=== PATIENT | female | born 1955 | race Caucasian/White ===

== ENCOUNTER 2019-09-23 09:14 | Outpatient (CLI) | payer BC, SELFPAY ==
[2019-09-23 09:48] LABS: Basophils Percent Auto 0.9 % (0.2-1.2); Eosinophils Absolute Auto 0.2 K/mm3 (0-0.3); Eosinophils Percent Auto 3.4 % (0-4.4); Hematocrit 38.2 % (37.0-47.0); Hemoglobin 12.5 g/dL (12.0-15.0); Immature Granulocyte Absolute 0.01 K/mm3 (0.00-0.031); Immature Granulocyte Percent A 0.2 % (0-0.5); Lymphocytes Percent Auto 32.3 % (18.3-44.2); Mean Corpuscular HGB Conc 32.7 g/dl (32-36); Mean Corpuscular Hemoglobin 29.9 pg (26-34); Mean Corpuscular Volume 91.4 fl (80-100); Mean Platelet Volume 10.4 fl (7.4-10.4); Monocytes Absolute Auto 0.6 K/mm3 (0.1-0.6); Monocytes Percent Auto 13.4 % (2.6-8.5); Neutrophils Absolute Auto 2.3 K/mm3 (1.3-6.7); Neutrophils Percent Auto 49.8 % (45.5-73.1); Platelet Count Result 245 k/mm3 (150-375); Red Blood Count 4.18 M/mm3 (4.2-5.4); White Blood Count 4.6 K/mm3 (4.5-10.0)
[2019-09-23 12:26] LABS: Alanine Aminotransferase 16 U/L (4-35); Albumin Level 4.4 g/dL (3.5-5.1); Alkaline Phosphatase 85 U/L (38-126); Aspartate Amino Transferase 22 U/L (14-36); Bilirubin,Total 0.4 mg/dL (0.2-1.3); Blood Urea Nitrogen 18 mg/dL (7-17); Calcium 10.3 mg/dL (8.4-10.2); Carbon Dioxide 31 mmol/L (22-30); Chloride 102 mmol/L (98-107); Estimated Glomerular Filt Rate > 60; Glucose 101 mg/dL (65-105); Sodium 139 mmol/L (137-145)
[2019-09-23 12:38] LABS: Parathyroid Intact 37.5 pg/mL (7.5-53.5)
[2019-09-26 04:46] LABS: CA 27.29 17 U/mL (<38)
== END 2019-09-23 09:15 | disposition home or self-care (01) ==
LOC: ANHLAB 09:17
PROVIDERS: PCP Internal Medicine; Visit Provider Internal Medicine Hematology & Oncology
DX: E83.52 Hypercalcemia (principal); C50.112 Malignant neoplasm of central portion of left female breast; Z17.0 Estrogen receptor positive status [ER+]
CPT/HCPCS: 36415; 80053; 82306; 83970; 85025; 86300

== ENCOUNTER 2019-09-30 12:28 | Outpatient (CLI) | payer BC, SELFPAY ==
[2019-09-30 16:26] LABS: Immunoglobulin A 657 mg/dL (70-400); Immunoglobulin G 1301 mg/dL (700-1600); Immunoglobulin M 83 mg/dL (40-230)
[2019-10-04 03:44] LABS: Kappa\\Lambda Light Chains 1.45 (0.26-1.65); Lambda Light Chain 17.4 mg/L (5.7-26.3)
[2019-10-05 04:53] LABS: Albumin 4.3 g/dL (3.8-4.8); Alpha 1 Globulin 0.3 g/dL (0.2-0.3); Alpha 2 Globulin 0.7 g/dL (0.5-0.9); Beta 1 Globulin 0.5 g/dL (0.4-0.6); Gamma Globulin 1.2 g/dL (0.8-1.7); Protein, Total 7.5 g/dL (6.1-8.1)
== END 2019-09-30 12:29 | disposition home or self-care (01) ==
LOC: ANHLAB 12:30
PROVIDERS: PCP Internal Medicine; Visit Provider Internal Medicine Hematology & Oncology
DX: E83.52 Hypercalcemia (principal)
CPT/HCPCS: 36415; 82784; 83883; 84155; 84165; 86334

== ENCOUNTER → 2019-12-22 09:18 | Outpatient (CLI) | payer BC, SELFPAY ==
--- NOTE | ~2019-12-22 | MM_ITS ---
EXAMINATION: MM diagnostic jim BI w olivia HISTORY: History of breast cancer. Recent breast reduction surgery. TECHNIQUE: Additional 3-D tomosynthesis images of the breasts were performed and synthetic 2-D images were generated. CAD analysis was submitted and interpreted. COMPARISON: Comparison to multiple prior studies sequentially, with oldest reviewed study dated 11/2016. BREAST PARENCHYMAL COMPOSITION: Breast composed of scattered areas of fibroglandular density. FINDINGS: There are surgical changes of bilateral breast reduction surgery. There are no suspicious m asses, calcifications or architectural distortion in either breast to suggest malignancy. IMPRESSION: 1. No mammographic evidence for malignancy in either breast. 2. Routine yearly screening mammogram and regular clinical breast examination are recommended. BI-RADS Category 2: Benign finding(s). Reviewed, dictated and finalized at location A. IMPRESSION: 1. No mammographic evidence for malignancy in either breast. 2. Routine yearly screening mammogram and regular clinical breast examination a re recommended. BI-RADS Category 2: Benign finding(s).
== END ==
PROVIDERS: PCP Internal Medicine; Visit Provider Internal Medicine Hematology & Oncology
DX: C50.112 Malignant neoplasm of central portion of left female breast (principal); Z17.0 Estrogen receptor positive status [ER+]
CPT/HCPCS: 77062; 77066; G0279

== ENCOUNTER 2019-12-30 08:42 | Outpatient (CLI) | payer BC, SELFPAY ==
[2019-12-30 09:00] LABS: Basophils Absolute Auto 0.1 K/mm3 (0.0-0.1); Basophils Percent Auto 1.1 % (0.2-1.2); Eosinophils Absolute Auto 0.2 K/mm3 (0-0.3); Eosinophils Percent Auto 2.8 % (0-4.4); Hematocrit 37.1 % (37.0-47.0); Hemoglobin 12.1 g/dL (12.0-15.0); Immature Granulocyte Absolute 0.02 K/mm3 (0.00-0.031); Immature Granulocyte Percent A 0.4 % (0-0.5); Lymphocytes Percent Auto 31.3 % (18.3-44.2); Mean Corpuscular HGB Conc 32.6 g/dl (32-36); Mean Corpuscular Hemoglobin 29.3 pg (26-34); Mean Corpuscular Volume 89.8 fl (80-100); Mean Platelet Volume 9.7 fl (7.4-10.4); Monocytes Absolute Auto 0.8 K/mm3 (0.1-0.6); Monocytes Percent Auto 15.5 % (2.6-8.5); Neutrophils Absolute Auto 2.7 K/mm3 (1.3-6.7); Neutrophils Percent Auto 48.9 % (45.5-73.1); Platelet Count Result 231 k/mm3 (150-375); Red Blood Count 4.13 M/mm3 (4.2-5.4); Red Cell Distribution Width 12.1 % (11.5-14.5); White Blood Count 5.4 K/mm3 (4.5-10.0)
[2019-12-30 10:22] LABS: Alanine Aminotransferase 19 U/L (4-35); Albumin Level 4.5 g/dL (3.5-5.1); Alkaline Phosphatase 86 U/L (38-126); Anion Gap 13.2 mmol/L (7-16); Aspartate Amino Transferase 21 U/L (14-36); Bilirubin,Total 0.4 mg/dL (0.2-1.3); Blood Urea Nitrogen 20 mg/dL (7-17); Calcium 9.9 mg/dL (8.4-10.2); Carbon Dioxide 29 mmol/L (22-30); Chloride 100 mmol/L (98-107); Estimated Glomerular Filt Rate > 60; Glucose 100 mg/dL (65-105); Potassium 4.2 mmol/L (3.4-5.0); Sodium 138 mmol/L (137-145)
[2020-01-06 05:33] LABS: CA 27.29 21 U/mL (<38)
== END 2019-12-30 08:43 | disposition home or self-care (01) ==
PROVIDERS: PCP Internal Medicine; Visit Provider Internal Medicine Hematology & Oncology
DX: C50.112 Malignant neoplasm of central portion of left female breast (principal); Z17.0 Estrogen receptor positive status [ER+]
CPT/HCPCS: 36415; 80053; 85025; 86300

== ENCOUNTER → 2020-01-22 10:21 | Outpatient (CLI) | payer BC, SELFPAY ==
--- NOTE | ~2020-01-22 | DEXA_ITS ---
Bone Density Report Name: Asmita Cleary Age: 64 Sex: Female Ethnicity: White Date of : 1955 Indication: postmenopausal; screening for osteoporosis; cancer; Referring Provider: Carmine Barrientos Study: Bone densitometry was performed. Exam Date: January 22, 2020 Accession number: [id number] Bone Density: Region BMD T-score Z-score Classification AP Spine (L1-L4) 0.964 -0.8 0.9 Normal Femoral Neck (Left) 0.770 -0.7 0.7 Normal Total Hip (Left) 0.850 -0.8 0.4 Normal Femoral Neck (Right) 0.793 -0.5 0.9 Normal Total Hip (Right) 0.796 -1.2 -0.1 Osteopenia Total Hip Mean 0.823 -1.0 0.2 Normal World Health Organization criteria for BMD impression classify patients as: Normal (T-score at or above -1.0), Osteopenia (T-score between -1.0 and -2.5), or Osteoporosis (T-score at or below -2.5). Previous Exams: Region Exam Age BMD T-score BMD Change BMD Change Date g/cm2 vs Baseline vs Previous AP Spine(L1-L4) 01/22/2020 64 0.964 -0.8 -0.100* -0.045* 01/08/2014 58 1.009 -0.3 -0.055* -0.044* 04/24/2010 55 1.053 0.1 -0.012 -0.012 02/04/2008 52 1.064 0.2 Total Hip(Left) 01/22/2020 64 0.850 -0.8 -0.150* -0.047* 01/08/2014 58 0.897 -0.4 -0.102* -0.021 04/24/2010 55 0.918 -0.2 -0.081* -0.081* 02/04/2008 52 1.000 0.5 Total Hip(Right) 01/22/2020 64 0.796 -1.2 -0.130* -0.049* 01/08/2014 58 0.844 -0.8 -0.082* -0.034* 04/24/2010 55 0.879 -0.5 -0.047* -0.047* 02/04/2008 52 0.926 -0.1 *Denotes significance at 95% confidence level, LSC for AP Spine = 0.022 g/cm2, LSC for Total Hip = 0.027 g/cm2 Clinical Information Provided by Patient: Has used the following medications: Vitamin D, Moeex Has the following medical conditions: Cancer Patient maximum height was 65 Menopause Age: 52 Drinks caffeinated beverages Onset of menses at age 15 Number of children 2 Impression: The patient has low bone mass, based on the Right Total Hip T-score. The BMD for the AP Spine(L1-L4) decreased, changing by -0.045 since the last DXA exam. The BMD for the Total Hip(Left) decreased, changing by -0.047 since the last DXA exam. The BMD for the Total Hip(Right) decreased, changing by -0.049 since the last DXA exam. Discussion: BONE DENSITY IS LOW AT ONE OR MORE SKELETAL SITES. This patient's lowest T-score is low at one or more skeletal sites. It meets the World Health Organization's (WHO) criteria for ?low bone mass? (T-score
== END ==
PROVIDERS: Visit Provider Nurse Practitioner Adult Health
DX: Z78.0 Asymptomatic menopausal state (principal); M85.851 Other specified disorders of bone density and structure, right thigh
CPT/HCPCS: 77080

== ENCOUNTER 2020-03-30 08:35 | Outpatient (CLI) | payer BC, SELFPAY ==
[2020-03-30 08:49] LABS: Basophils Absolute Auto 0.1 K/mm3 (0.0-0.1); Basophils Percent Auto 0.9 % (0.2-1.2); Eosinophils Absolute Auto 0.2 K/mm3 (0-0.3); Eosinophils Percent Auto 3.2 % (0-4.4); Hematocrit 39.1 % (37.0-47.0); Hemoglobin 12.7 g/dL (12.0-15.0); Immature Granulocyte Absolute 0.01 K/mm3 (0.00-0.031); Immature Granulocyte Percent A 0.2 % (0-0.5); Lymphocytes Absolute Auto 1.78 K/mm3 (0.9-3.2); Lymphocytes Percent Auto 31.3 % (18.3-44.2); Mean Corpuscular HGB Conc 32.5 g/dl (32-36); Mean Corpuscular Hemoglobin 29.4 pg (26-34); Mean Corpuscular Volume 90.5 fl (80-100); Mean Platelet Volume 9.5 fl (7.4-10.4); Monocytes Absolute Auto 0.7 K/mm3 (0.1-0.6); Monocytes Percent Auto 12.9 % (2.6-8.5); Neutrophils Absolute Auto 2.9 K/mm3 (1.3-6.7); Neutrophils Percent Auto 51.5 % (45.5-73.1); Platelet Count Result 275 k/mm3 (150-375); Red Blood Count 4.32 M/mm3 (4.2-5.4); Red Cell Distribution Width 11.6 % (11.5-14.5); White Blood Count 5.7 K/mm3 (4.5-10.0)
[2020-03-30 13:12] LABS: Alanine Aminotransferase 22 U/L (4-35); Albumin Level 4.6 g/dL (3.5-5.1); Alkaline Phosphatase 89 U/L (38-126); Anion Gap 11 mmol/L (8-16); Aspartate Amino Transferase 25 U/L (14-36); Bilirubin,Total 0.3 mg/dL (0.2-1.3); Blood Urea Nitrogen 18 mg/dL (7-17); Calcium 10.1 mg/dL (8.4-10.2); Carbon Dioxide 30 mmol/L (22-30); Chloride 102 mmol/L (98-107); Estimated Glomerular Filt Rate > 60; Glucose 106 mg/dL (65-105); Potassium 3.9 mmol/L (3.4-5.0); Sodium 143 mmol/L (137-145)
[2020-04-02 13:06] LABS: CA 27.29 17 U/mL (<38)
== END 2020-03-30 08:36 | disposition home or self-care (01) ==
LOC: ANHLAB 08:37
PROVIDERS: PCP Internal Medicine; Visit Provider Internal Medicine Hematology & Oncology
DX: C50.112 Malignant neoplasm of central portion of left female breast (principal); Z17.0 Estrogen receptor positive status [ER+]
CPT/HCPCS: 36415; 80053; 85025; 86300

== ENCOUNTER 2020-04-19 11:04 | Outpatient (CLI) | payer BC, SELFPAY ==
--- NOTE | ~2020-04-19 | XR_ITS ---
EXAMINATION: XR wrist LT min 3V DATE: 04/19/2020 11:31 INDICATION: Left wrist pain. TECHNIQUE: 4 views of left wrist were obtained. COMPARISON: None. FINDINGS: Bone alignment is normal. No fracture. There is mild osteoarthritis of triscaphe joint and first carpometacarpal joint. IMPRESSION: 1. Mild polyarticular osteoarthritis. Reviewed, dictated and finalized at location A. 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
== END 2020-04-19 11:05 | disposition home or self-care (01) ==
LOC: ANHIMG 11:12
PROVIDERS: PCP Internal Medicine; Visit Provider Nurse Practitioner Adult Health
DX: M19.032 Primary osteoarthritis, left wrist (principal)
CPT/HCPCS: 73110

== ENCOUNTER → 2020-06-07 09:33 | Outpatient (CLI) | payer BC, SELFPAY ==
--- NOTE | ~2020-06-07 | MM_ITS ---
EXAMINATION: MM diagnostic jim LT w olivia HISTORY: History of left breast cancer TECHNIQUE: Craniocaudal, mediolateral, and mediolateral oblique 3-D tomosynthesis images of the left breast were performed and synthetic 2-D images were generated. CAD analysis was submitted and interpr eted. COMPARISON: 12/22/2019, 06/08/2019, 08/15/2018, 08/12/2018, 08/08/2017 BREAST PARENCHYMAL COMPOSITION: There are scattered areas of fibroglandular density. FINDINGS: Lumpectomy changes of the inner breast continue to evolve. There is no suspicious mass, gisela cification, or architectural distortion. There is been no suspicious interval change. IMPRESSION: 1. Evolving lumpectomy changes without mammographic evidence of malignancy. 2. Routine screening mammography is recommended. BI-RADS Category 2: Benign finding(s). Reviewed, dictated and finalized at location A. [employer]
== END ==
PROVIDERS: PCP Internal Medicine; Visit Provider Nurse Practitioner Adult Health
DX: C50.112 Malignant neoplasm of central portion of left female breast (principal); Z17.0 Estrogen receptor positive status [ER+]; Z98.890 Other specified postprocedural states
CPT/HCPCS: 77061; 77065; G0279

== ENCOUNTER 2020-09-08 09:01 | Outpatient (CLI) | payer BC, SELFPAY ==
[2020-09-08 09:32] LABS: Basophils Percent Auto 0.6 % (0.2-1.2); Eosinophils Absolute Auto 0.1 K/mm3 (0-0.3); Eosinophils Percent Auto 2.6 % (0-4.4); Hematocrit 39.6 % (37.0-47.0); Hemoglobin 12.9 g/dL (12.0-15.0); Immature Granulocyte Absolute 0.02 K/mm3 (0.00-0.031); Immature Granulocyte Percent A 0.4 % (0-0.5); Lymphocytes Absolute Auto 1.69 K/mm3 (0.9-3.2); Lymphocytes Percent Auto 31.2 % (18.3-44.2); Mean Corpuscular HGB Conc 32.6 g/dl (32-36); Mean Corpuscular Hemoglobin 28.9 pg (26-34); Mean Corpuscular Volume 88.8 fl (80-100); Mean Platelet Volume 9.8 fl (7.4-10.4); Monocytes Absolute Auto 0.7 K/mm3 (0.1-0.6); Monocytes Percent Auto 12.9 % (2.6-8.5); Neutrophils Absolute Auto 2.8 K/mm3 (1.3-6.7); Neutrophils Percent Auto 52.3 % (45.5-73.1); Platelet Count Result 257 k/mm3 (150-375); Red Blood Count 4.46 M/mm3 (4.2-5.4); Red Cell Distribution Width 12.2 % (11.5-14.5); White Blood Count 5.4 K/mm3 (4.5-10.0)
[2020-09-08 11:57] LABS: Alanine Aminotransferase 22 U/L (4-35); Albumin Level 4.6 g/dL (3.5-5.1); Alkaline Phosphatase 91 U/L (38-126); Anion Gap 9 mmol/L (8-16); Aspartate Amino Transferase 25 U/L (14-36); Bilirubin,Total 0.3 mg/dL (0.2-1.3); Blood Urea Nitrogen 15 mg/dL (7-17); Calcium 9.9 mg/dL (8.4-10.2); Carbon Dioxide 28 mmol/L (22-30); Chloride 105 mmol/L (98-107); Estimated Glomerular Filt Rate > 60; Glucose 104 mg/dL (65-105); Potassium 3.9 mmol/L (3.4-5.0); Sodium 142 mmol/L (137-145)
[2020-09-11 09:21] LABS: CA 15-3 10 U/mL (<32)
== END 2020-09-08 09:02 | disposition home or self-care (01) ==
LOC: ANHLAB 09:03
PROVIDERS: PCP Internal Medicine; Visit Provider Internal Medicine Hematology & Oncology
DX: C50.112 Malignant neoplasm of central portion of left female breast (principal); Z17.0 Estrogen receptor positive status [ER+]
CPT/HCPCS: 36415; 80053; 85025; 86300

== ENCOUNTER → 2020-09-24 01:02 | Outpatient (CLI) | payer BC, SELFPAY ==
[2020-09-24 20:53] LABS: SARS-CoV-2 RNA PCR Negative
== END ==
PROVIDERS: PCP Internal Medicine; Visit Provider Internal Medicine Gastroenterology
DX: Z01.812 Encounter for preprocedural laboratory examination (principal); Z20.822 Contact with and (suspected) exposure to COVID-19
CPT/HCPCS: C9803; U0003; U0005

== ENCOUNTER 2020-09-27 02:44 | Day surgery (SDC) | payer BC, SELFPAY ==
[2020-09-15 12:50] VITALS: BMI 31.1
[2020-09-27 07:33] VITALS: BP 132/56; PULSE 61; RESP 18; TEMP 36.4; O2SAT 99; BMI 29.7
[2020-09-27] MEDS: LACTATED RINGERS 1,000 ML 150 ML IV CONT (07:41)
--- NOTE | 2020-09-27 08:25 | WPDANESEPPF ---
Anes - Initial Pre Proc Eval Procedure: Operation Date: 09/27/20 08:45 Proposed Procedures p Screening Colonoscopy - Raman Arroyo MD Date/Time: 09/27/20 08:25 Surgeon: Raman Arroyo MD Pre Op Diagnosis: Neoplasm Screening Patient Data Age: 65 Gender: F Height: 5 ft 5 in Weight: 81.1 kg Last Vital Signs Temp 97.6 F 09/27/20 07:33 Pulse 61 09/27/20 07:33 Resp 18 09/27/20 07:33 BP 132/56 L 09/27/20 07:33 Pulse Ox 99 09/27/20 07:33 Allergies Allergy/AdvReac Type Severity Reaction Status Date / Time latex Allergy Intermediate REDNESS, Verified 09/09/20 09:59 ITCHING, ANGIOEDEMA Penicillins Allergy Intermediate RASH Verified 09/09/20 09:59 povidone-iodine Allergy Mild Rash Verified 09/09/20 09:59 soap [From Betadine] Allergy Rash Verified 09/15/20 12:46 Home Medications Medication Instructions Recorded Confirmed Type amlodipine 5 mg PO DAILY 03/11/20 09/15/20 History anastrozole 1 mg PO DAILY 03/11/20 09/15/20 History atenolol 100 mg PO DAILY 03/11/20 09/15/20 History calcium polycarbophil [FiberCon] 1,250 mg PO DAILY 03/11/20 09/15/20 History cholecalciferol (vitamin D3) 25 mcg PO DAILY 03/11/20 09/15/20 History [Vitamin D3] levothyroxine [Synthroid] 88 mcg PO DAILY 03/11/20 09/15/20 History cjegqptowbcr-uwum-rlrmt acid 1 tablet PO DAILY 03/11/20 09/15/20 History [Centrum Women] potassium chloride 20 meq PO BID 03/11/20 09/15/20 History triamcinolone acetonide 1 applic TOPICAL BID 03/11/20 09/15/20 History triamterene-hydrochlorothiazid 0.5 tablet PO DAILY 03/11/20 09/15/20 History calcium carbonate-vitamin D3 1 tablet PO DAILY 09/15/20 09/15/20 History [Calcium + D] Patient hx anesthesia problems: none Family hx anesthesia problems: none PMFSH Past Medical History Medical History (Updated 09/27/20 @ 08:25 by Ronald Gutierrez MD) H/O malignant neoplasm of breast Hypertension Hypothyroid Social History Social History Substance use type: does not use Gender identity (if verbalized by the patient): Female Anes - Eval Final PreProcedure Day of Procedure 09/27/20 08:25 Patient weight: overweight Heart: regular rate and rhythm Lungs: clear to auscultation Airway: Mallampati scale class II Neurological: alert and oriented Last oral intake: >/= 8 hours ASA classification: III Emergent: no Anesthetic plan: proceed Anesthesia type and monitoring: general GIVS and standard monitoring Informed Consent: The patient's anesthetic plan and its attendant risks and benefits were discussed with the patient/family/POA. Questions were solicited and answers provided to the satisfaction of the patient/family/POA.
--- NOTE | 2020-09-27 08:50 | PM.HPGS ---
History of Present Illness History of Present Illness Consent: Risks, benefits, and alternatives have been discussed and questions answered. Patient agrees to proceed with procedure. Chief complaint: Neoplasm Screening Narrative: Asmita Cleary is a 65 year old female with last colonoscopy 2011 Review of Systems Constitutional: Constitutional: Denies headache(s) and Denies weakness Eyes: Eyes: Denies blurry vision ENT: Reports Normal hearing present, Denies headache(s) and Denies neck pain Cardiovascular: Cardiovascular: Denies chest pain and Denies dyspnea Respiratory: Respiratory: Denies dyspnea Gastrointestinal: Gastrointestinal: Reports no additional gastrointestinal complaints Genitourinary: Genitourinary: Denies dysuria Musculoskeletal: Musculoskeletal: Denies neck pain Integumentary/Breasts: Skin/Breast: Denies dry skin Neurologic: Reports Normal hearing present, Denies headache(s) and Denies weakness Psychiatric: Psychiatric: Denies anxiety Endocrine: Endocrine: Denies change in body appearance Hematologic/Lymphatic: Hematologic/Lymphatic: Denies easy bleeding Allergic/Immunologic: Allergic/Immunologic: Denies urticaria PMF Past Medical History Medical History (Updated 09/27/20 @ 08:52 by Raman Arroyo MD) Colon cancer screening H/O malignant neoplasm of breast Hypertension Hypothyroid Social History Social History Substance use type: does not use Gender identity (if verbalized by the patient): Female Meds Home Medications and Allergies Home Medications Medication Instructions Recorded Confirmed Type amlodipine 5 mg PO DAILY 03/11/20 09/15/20 History anastrozole 1 mg PO DAILY 03/11/20 09/15/20 History atenolol 100 mg PO DAILY 03/11/20 09/15/20 History calcium polycarbophil [FiberCon] 1,250 mg PO DAILY 03/11/20 09/15/20 History cholecalciferol (vitamin D3) 25 mcg PO DAILY 03/11/20 09/15/20 History [Vitamin D3] levothyroxine [Synthroid] 88 mcg PO DAILY 03/11/20 09/15/20 History xepxrgzrngop-xzkk-uslgu acid 1 tablet PO DAILY 03/11/20 09/15/20 History [Centrum Women] potassium chloride 20 meq PO BID 03/11/20 09/15/20 History triamcinolone acetonide 1 applic TOPICAL BID 03/11/20 09/15/20 History triamterene-hydrochlorothiazid 0.5 tablet PO DAILY 03/11/20 09/15/20 History calcium carbonate-vitamin D3 1 tablet PO DAILY 09/15/20 09/15/20 History [Calcium + D] Allergies Allergy/AdvReac Type Severity Reaction Status Date / Time latex Allergy Intermediate REDNESS, Verified 09/09/20 09:59 ITCHING, ANGIOEDEMA Penicillins Allergy Intermediate RASH Verified 09/09/20 09:59 povidone-iodine Allergy Mild Rash Verified 09/09/20 09:59 soap [From Betadine] Allergy Rash Verified 09/15/20 12:46 Vital Signs Vital Signs - 24 hr 09/27/20 07:33 Temperature 97.6 F Pulse Rate 61 Respiratory Rate 18 Blood Pressure 132/56 L Pulse Oximetry 99 Exam Const: General: comfortable and no acute distress HENMT: General nose exam: Normal nares present Eyes: General: appearance normal, both eyes and all related structures Neck: Neck: no JVD Resp: Auscultation: clear to auscultation bilaterally Cardio: Rate: regular rate Rhythm: regular rhythm GI: Inspection: non-distended GI Palp: Yes Soft to palpation Skin: General skin exam: normal color Neuro: General: gait normal Speech: normal speech Extrem: General: normal to inspection Psych: Mental Status: mental status grossly normal Assessment and Plan Assessment and plan (1) Colon cancer screening: Code(s): Z12.11 - Encounter for screening for malignant neoplasm of colon Status: Acute Assessment and Plan: colonoscopy
[2020-09-27 09:15] VITALS: BP 85/28; PULSE 61; RESP 15; O2SAT 97
[2020-09-27 09:25] VITALS: BP 105/61; PULSE 60; RESP 15; O2SAT 99
[2020-09-27 09:35] VITALS: BP 99/60; PULSE 57; RESP 22; O2SAT 100
== END 2020-09-27 09:35 | disposition home or self-care (01) ==
PROVIDERS: PCP Internal Medicine; Visit Provider Internal Medicine Gastroenterology
PROC: 0DJD8ZZ Inspection of Lower Intestinal Tract, Via Natural or Artificial Opening Endoscopic (ICD-10-PCS; CPT 45378; principal; 2020-09-27 08:45)
DX: Z12.11 Encounter for screening for malignant neoplasm of colon (principal); D36.9 Benign neoplasm, unspecified site; K57.30 Diverticulosis of large intestine without perforation or abscess without bleeding; K64.8 Other hemorrhoids; I10 Essential (primary) hypertension; E03.9 Hypothyroidism, unspecified; Z85.3 Personal history of malignant neoplasm of breast
CPT/HCPCS: 45385; 88305; J7120

== ENCOUNTER 2020-12-13 08:57 | Outpatient (CLI) | payer BC, SELFPAY ==
[2020-12-13 09:28] LABS: Basophils Percent Auto 0.7 % (0.2-1.2); Eosinophils Absolute Auto 0.1 K/mm3 (0-0.3); Eosinophils Percent Auto 2.2 % (0-4.4); Hematocrit 39.8 % (37.0-47.0); Hemoglobin 12.9 g/dL (12.0-15.0); Immature Granulocyte Absolute 0.02 K/mm3 (0.00-0.031); Immature Granulocyte Percent A 0.3 % (0-0.5); Lymphocytes Percent Auto 27.6 % (18.3-44.2); Mean Corpuscular HGB Conc 32.4 g/dl (32-36); Mean Corpuscular Hemoglobin 28.9 pg (26-34); Mean Platelet Volume 9.8 fl (7.4-10.4); Monocytes Absolute Auto 0.6 K/mm3 (0.1-0.6); Monocytes Percent Auto 10.9 % (2.6-8.5); Neutrophils Absolute Auto 3.4 K/mm3 (1.3-6.7); Neutrophils Percent Auto 58.3 % (45.5-73.1); Platelet Count Result 269 k/mm3 (150-375); Red Blood Count 4.47 M/mm3 (4.2-5.4); Red Cell Distribution Width 12.4 % (11.5-14.5); White Blood Count 5.8 K/mm3 (4.5-10.0)
[2020-12-13 12:38] LABS: Alanine Aminotransferase 21 U/L (4-35); Albumin Level 4.6 g/dL (3.5-5.1); Alkaline Phosphatase 103 U/L (38-126); Anion Gap 9 mmol/L (8-16); Aspartate Amino Transferase 25 U/L (14-36); Bilirubin,Total 0.3 mg/dL (0.2-1.3); Blood Urea Nitrogen 17 mg/dL (7-17); Calcium 10.2 mg/dL (8.4-10.2); Carbon Dioxide 29 mmol/L (22-30); Chloride 102 mmol/L (98-107); Estimated Glomerular Filt Rate > 60; Glucose 97 mg/dL (65-105); Potassium 3.8 mmol/L (3.4-5.0); Sodium 140 mmol/L (137-145)
[2020-12-18 13:54] LABS: CA 15-3 13 U/mL (<32)
== END 2020-12-13 08:58 | disposition home or self-care (01) ==
LOC: ANHLAB 09:07
PROVIDERS: PCP Internal Medicine; Visit Provider Internal Medicine Hematology & Oncology
DX: C50.112 Malignant neoplasm of central portion of left female breast (principal); Z17.0 Estrogen receptor positive status [ER+]
CPT/HCPCS: 36415; 80053; 85025; 86300

== ENCOUNTER → 2020-12-13 09:28 | Outpatient (CLI) | payer BC, SELFPAY ==
--- NOTE | ~2020-12-13 | MM_ITS ---
EXAMINATION: MM diagnostic jim BI w olivia HISTORY: History of left breast cancer TECHNIQUE: Craniocaudal, mediolateral, and mediolateral oblique 3-D tomosynthesis images of the breas ts were performed and synthetic 2-D images were generated. CAD analysis was submitted and interpreted . COMPARISON: 06/07/2020, 12/22/2019, 06/08/2019, 08/15/2018, 08/12/2018 BREAST PARENCHYMAL COMPOSITION: There are scattered areas of fibroglandular density. FINDINGS: There are changes of lumpectomy in the left breast and bilateral reduction mammoplasty. No suspicious mass, calcification, or architectural distortion is identified. There are multiple areas o f fat necrosis seen in the breasts. There are developing dystrophic calcifications in an area of fat necrosis in the right breast. IMPRESSION: 1. Benign postsurgical changes without mammographic evidence of malignancy. 2. Recommend routine screening mammography in one year. BI-RADS Category 2: Benign finding(s). Reviewed, dictated and finalized at location A.
== END ==
PROVIDERS: PCP Internal Medicine; Visit Provider Internal Medicine Hematology & Oncology
DX: C50.112 Malignant neoplasm of central portion of left female breast (principal); Z17.0 Estrogen receptor positive status [ER+]
CPT/HCPCS: 77062; 77066; G0279

== ENCOUNTER → 2021-03-23 08:50 | Outpatient (CLI) | payer BC, SELFPAY ==
--- NOTE | ~2021-03-23 | XR_ITS ---
EXAMINATION: XR chest 2V 03/23/2021 09:25 INDICATION: Dyspnea PROCEDURE: 2 view chest COMPARISON: 05/12/2009 FINDINGS: The lungs are clear. The cardiomediastinal silhouette is within normal limits. There are no pleural effusions. There is no pneumothorax suspected. IMPRESSION: 1: NO ACUTE CARDIOPULMONARY DISEASE. Reviewed, dictated and finalized at location B.
== END ==
PROVIDERS: PCP Internal Medicine; Visit Provider Internal Medicine
DX: R06.00 Dyspnea, unspecified (principal)
CPT/HCPCS: 71046

== ENCOUNTER 2021-06-27 08:35 | Outpatient (CLI) | payer BC, SELFPAY ==
[2021-06-27 09:28] LABS: Basophils Absolute Auto 0.1 K/mm3 (0.0-0.1); Eosinophils Absolute Auto 0.2 K/mm3 (0-0.3); Hematocrit 41.1 % (37.0-47.0); Hemoglobin 12.9 g/dL (12.0-15.0); Immature Granulocyte Absolute 0.01 K/mm3 (0.00-0.031); Immature Granulocyte Percent A 0.2 % (0-0.5); Lymphocytes Absolute Auto 1.52 K/mm3 (0.9-3.2); Lymphocytes Percent Auto 30.3 % (18.3-44.2); Mean Corpuscular HGB Conc 31.4 g/dl (32-36); Mean Corpuscular Hemoglobin 29.3 pg (26-34); Mean Corpuscular Volume 93.2 fl (80-100); Monocytes Absolute Auto 0.6 K/mm3 (0.1-0.6); Neutrophils Absolute Auto 2.7 K/mm3 (1.3-6.7); Neutrophils Percent Auto 54.5 % (45.5-73.1); Platelet Count Result 258 k/mm3 (150-375); Red Blood Count 4.41 M/mm3 (4.2-5.4); Red Cell Distribution Width 12.3 % (11.5-14.5)
[2021-06-27 09:54] LABS: Alanine Aminotransferase 24 U/L (4-35); Albumin Level 4.6 g/dL (3.5-5.1); Alkaline Phosphatase 88 U/L (38-126); Anion Gap 8 mmol/L (8-16); Aspartate Amino Transferase 31 U/L (14-36); Bilirubin,Total 0.5 mg/dL (0.2-1.3); Blood Urea Nitrogen 19 mg/dL (7-17); Calcium 9.9 mg/dL (8.4-10.2); Carbon Dioxide 30 mmol/L (22-30); Chloride 102 mmol/L (98-107); Estimated Glomerular Filt Rate > 60; Glucose 108 mg/dL (65-110); Potassium 3.7 mmol/L (3.4-5.0); Sodium 140 mmol/L (137-145)
[2021-06-30 05:40] LABS: CA 15-3 12 U/mL (<32)
== END 2021-06-27 08:36 | disposition home or self-care (01) ==
PROVIDERS: PCP Internal Medicine; Visit Provider Internal Medicine Hematology & Oncology
DX: C50.112 Malignant neoplasm of central portion of left female breast (principal); Z17.0 Estrogen receptor positive status [ER+]
CPT/HCPCS: 36415; 80053; 85025; 86300

== ENCOUNTER → 2021-12-05 10:04 | Outpatient (CLI) | payer BC, SELFPAY ==
--- NOTE | ~2021-12-05 | MM_ITS ---
EXAMINATION: MM screening [facility] BI w olivia HISTORY: Screening TECHNIQUE: Craniocaudal and mediolateral oblique 3-D tomosynthesis images were obtained and synthetic 2-D images were generated. CAD analysis was submitted and interpreted. COMPARISON: Comparison to multiple prior studies sequentially, with oldest reviewed study dated 12/21. BREAST PARENCHYMAL COMPOSITION: There are scattered areas of fibroglandular density.. FINDINGS: There is a developing cluster of indeterminate calcifications in the upper central aspect o f the right breast, middle third. The left breast is stable without evidence for malignancy. There is evidence for fat necrosis in the left breast. IMPRESSION: 1. Developing cluster of indeterminate right breast calcifications in the upper central right breast. 2. Magnification views are recommended. BI-RADS Category 0: Incomplete: Needs additional imaging evaluation. Reviewed, dictated and finalized at location A.
== END ==
PROVIDERS: PCP Internal Medicine; Visit Provider Internal Medicine Hematology & Oncology
DX: Z12.31 Encounter for screening mammogram for malignant neoplasm of breast (principal); R92.8 Other abnormal and inconclusive findings on diagnostic imaging of breast
CPT/HCPCS: 77063; 77067

== ENCOUNTER → 2021-12-20 07:52 | Outpatient (CLI) | payer BC, SELFPAY ==
--- NOTE | ~2021-12-20 | MMUS_ITS ---
EXAMINATION: MM diagnostic jim BI w olivia, US breast LT limited HISTORY: Follow-up right breast calcifications. Palpable left breast abnormality. TECHNIQUE: Additional 3-D tomosynthesis images of the breasts were performed and synthetic 2-D images were generated. CAD analysis was submitted and interpreted. High resolution Limited left breast ultr asound was performed. COMPARISON: Comparison to multiple prior studies sequentially, with oldest reviewed study dated 12/21. BREAST PARENCHYMAL COMPOSITION: Breast composed of scattered areas of fibroglandular density FINDINGS: MAMMOGRAPHIC FINDINGS: There is a cluster of pleomorphic calcifications in the upper central aspect of the right breast. In the area of palpable concern in the left breast there is a developing focal area of fat necrosis with rim-like calcification. There are associated surgical changes consistent with previous lumpectomy. ULTRASOUND: Limited left breast ultrasound: At 7:00, 7 cm from the nipple in the area of palpable concern there i s a complex solid 1.7 cm mass with posterior attenuation and no internal vascularity, most likely sal ign fat necrosis. IMPRESSION: 1. Pleomorphic right breast calcifications. Stereotactic right breast biopsy recommended. BI-RADS Cat egory 4. 2. Probable benign fat necrosis in the lower inner quadrant of the left breast corresponding to the p alpable abnormality. 6 month follow-up Limited left breast ultrasound recommended. BI-RADS Category 3 . Reviewed, dictated and finalized at location L. IMPRESSION: 1. Pleomorphic right breast calcifications. Stereotactic right breast biopsy re commended. BI-RADS Category 4. 2. Probable benign fat necrosis in the lower inner quadrant of the left breast corresponding to the palpable abnormality. 6 month follow-up Limited left breas t ultrasound recommended. BI-RADS Category 3.
== END ==
PROVIDERS: PCP Internal Medicine; Visit Provider Internal Medicine Hematology & Oncology
DX: R92.8 Other abnormal and inconclusive findings on diagnostic imaging of breast (principal); R92.1 Mammographic calcification found on diagnostic imaging of breast; N63.24 Unspecified lump in the left breast, lower inner quadrant
CPT/HCPCS: 76642; 77062; 77066; G0279

== ENCOUNTER 2022-02-07 09:02 | Outpatient (CLI) | payer MEDICARE, OTHER, SELFPAY ==
[2022-02-07 09:28] LABS: Basophils Absolute Auto 0.1 K/mm3 (0.0-0.1); Basophils Percent Auto 0.8 % (0.2-1.2); Eosinophils Absolute Auto 0.2 K/mm3 (0-0.3); Hematocrit 40.6 % (37.0-47.0); Immature Granulocyte Absolute 0.02 K/mm3 (0.00-0.031); Immature Granulocyte Percent A 0.3 % (0-0.5); Lymphocytes Absolute Auto 1.73 K/mm3 (0.9-3.2); Lymphocytes Percent Auto 28.5 % (18.3-44.2); Mean Corpuscular Hemoglobin 29.2 pg (26-34); Mean Corpuscular Volume 91.2 fl (80-100); Mean Platelet Volume 9.8 fl (7.4-10.4); Monocytes Absolute Auto 0.6 K/mm3 (0.1-0.6); Monocytes Percent Auto 10.6 % (2.6-8.5); Neutrophils Absolute Auto 3.4 K/mm3 (1.3-6.7); Neutrophils Percent Auto 56.8 % (45.5-73.1); Platelet Count Result 251 k/mm3 (150-375); Red Blood Count 4.45 M/mm3 (4.2-5.4); Red Cell Distribution Width 12.3 % (11.5-14.5); White Blood Count 6.1 K/mm3 (4.5-10.0)
[2022-02-07 14:40] LABS: Alanine Aminotransferase 24 U/L (6-35); Albumin Level 4.7 g/dL (3.5-5.1); Alkaline Phosphatase 82 U/L (38-126); Anion Gap 15 mmol/L (8-16); Aspartate Amino Transferase 27 U/L (14-36); Bilirubin,Total 0.4 mg/dL (0.2-1.3); Blood Urea Nitrogen 20 mg/dL (7-17); Calcium 9.9 mg/dL (8.4-10.2); Carbon Dioxide 24 mmol/L (22-30); Chloride 103 mmol/L (98-107); Estimated Glomerular Filt Rate > 60; Glucose 102 mg/dL (65-110); Potassium 3.8 mmol/L (3.4-5.0); Sodium 142 mmol/L (137-145)
[2022-02-10 07:36] LABS: CA 15-3 13 U/mL (<32)
== END 2022-02-07 09:03 | disposition home or self-care (01) ==
LOC: ANHLAB 09:10
PROVIDERS: PCP Internal Medicine; Visit Provider Internal Medicine Hematology & Oncology
DX: C50.112 Malignant neoplasm of central portion of left female breast (principal); Z17.0 Estrogen receptor positive status [ER+]
CPT/HCPCS: 36415; 80053; 85025; 86300

== ENCOUNTER 2022-02-08 12:22 | Outpatient (CLI) | payer MEDICARE, OTHER, SELFPAY ==
--- NOTE | ~2022-02-08 | MM_ITS ---
EXAMINATION: MM stereotactic bx RT, MM post biopsy diagnostic RT, MM stereotactic specimen RT, Specim en Radiograph, Tissue Marker Clip Placement, Unilateral Mammogram DATE: 02/08/2022 15:18 (accession [id number]), 02/08/2022 15:16 (accession [id number]), 02/08 14:56 (accession [id number]) INDICATION: Abnormal mammogram: Indeterminate cluster grouped pleomorphic microcalcifications in uppe r central right breast. TECHNIQUE AND FINDINGS: The risks and potential benefits of the procedure were discussed with the patient and written informe d consent was obtained. Timeout procedure was performed. The patient was placed in the prone position on the dedicated stereotactic table with the right breast in craniocaudal compression, and the area of interest was localized and targeted utilizing digital imaging with stereotaxis. After sterile preparation of the skin, 1% lidocaine was utilized for local anesthesia at the skin pun cture site and 1% lidocaine with epinephrine was utilized for deeper local anesthesia/is about the bi opsy site. A 9G Teamly vacuum assisted biopsy needle was advanced to the level of the calcification o f interest from a cephalad approach utilizing stereotactic guidance and a total of 12 tissue core bio psies were obtained. A specimen radiograph demonstrates that multiple calcifications of interest are included within the t issue cores. A tissue marker clip was then placed at the biopsy site. A digital mammographic exposu re confirmed the successful deployment of the biopsy marker. The needle was removed and hemostasis w as achieved. A sterile bandage was applied. The patient tolerated the procedure well and there is n o evidence of significant immediate complication. The patient was given verbal as well as written po stprocedural instructions prior to discharge from the department. Tissue cores were submitted to [facility] pathology for histologic analysis. A 2-view right unilateral digital mammogram was obtained post procedure, demonstrating the tissue mar ker clip in expected position. IMPRESSION: Successful stereotactic biopsy of upper central right breast microcalcifications, followed by tissue marker clip placement. Please refer to pathology report for histologic analysis. Reviewed, dictated and finalized at Location A. Reviewed, dictated and finalized at location A. IMPRESSION: Successful stereotactic biopsy of upper central right breast microcalcificatio ns, followed by tissue marker clip placement. Please refer to pathology report for histologic analysis. IMPRESSION: Successful stereotactic biopsy of upper central right breast microcalcificatio ns, followed by tissue marker clip placement. Please refer to pathology report for histologic analysis.
== END 2022-02-08 12:23 | disposition home or self-care (01) ==
PROVIDERS: PCP Internal Medicine; Visit Provider Internal Medicine Hematology & Oncology
DX: R92.8 Other abnormal and inconclusive findings on diagnostic imaging of breast (principal)
CPT/HCPCS: 19081; 77065; 88305; 88342; A4648

== ENCOUNTER → 2022-04-21 07:24 | Outpatient (CLI) | payer MEDICARE, OTHER, SELFPAY ==
--- NOTE | ~2022-04-21 | US_ITS ---
EXAMINATION: US right upper quadrant DATE: 04/21/2022 07:49 INDICATION: Right upper quadrant pain TECHNIQUE: Multiple grayscale and Doppler ultrasound images of the right upper quadrant were obtained . COMPARISON: None available. FINDINGS: Pancreas not visualized, obscured by bowel gas The liver is normal with increased echogenic ity and echotexture. No surface nodularity. Normal hepatopetal flow in the main portal vein. The gall bladder is normal with no abnormal wall thickening, pericholecystic fluid or stones. The common bile duct measures 4 mm. There was no sonographic Diallo sign. IMPRESSION: Echogenic liver, most commonly due to steatosis but also can be seen with hepatitis and fibrosis. Reviewed, dictated and finalized at location K. BILITATION INSPECTOR IMPRESSION: Echogenic liver, most commonly due to steatosis but also can be seen with hepat itis and fibrosis.
== END ==
PROVIDERS: PCP Internal Medicine; Visit Provider Internal Medicine
DX: R10.11 Right upper quadrant pain (principal)
CPT/HCPCS: 76705

== ENCOUNTER → 2022-06-05 12:07 | Outpatient (CLI) | payer MEDICARE, OTHER, SELFPAY ==
--- NOTE | ~2022-06-05 | DEXA_ITS ---
Bone Density Report Name: ALLY HACKETT Age: 67 Sex: Female Ethnicity: White Date of : 1955 Indication: osteopenia; cancer; postmenopausal Referring Provider: MARIA TERESA, MICHAEL Stroud Study: Bone densitometry was performed. Exam Date: June 05, 2022 Accession number: [id number] Bone Density: Region BMD T-score Z-score Classification AP Spine (L1-L4) 0.934 -1.0 0.7 Normal Femoral Neck (Left) 0.719 -1.2 0.3 Osteopenia Total Hip (Left) 0.821 -1.0 0.2 Normal Femoral Neck (Right) 0.808 -0.4 1.2 Normal Total Hip (Right) 0.797 -1.2 0.1 Osteopenia Total Hip Mean 0.809 -1.1 0.2 Osteopenia World Health Organization criteria for BMD impression classify patients as: Normal (T-score at or above -1.0), Osteopenia (T-score between -1.0 and -2.5), or Osteoporosis (T-score at or below -2.5). 10-year Fracture Risk(1): Major Osteoporotic Fracture 8.1% Hip Fracture 0.7% Reported Risk Factors: [place] (), Neck BMD=0.719, BMI=30.2 (1) FRAX(R) Version 3.08. Fracture probability calculated for an untreated patient. Fracture probability may be lower if the patient has received treatment. Previous Exams: Region Exam Age BMD T-score BMD Change BMD Change Date g/cm2 vs Baseline vs Previous AP Spine(L1-L4) 06/05/2022 67 0.934 -1.0 -0.130* -0.031* 01/22/2020 64 0.964 -0.8 -0.100* -0.045* 01/08/2014 58 1.009 -0.3 -0.055* -0.044* 04/24/2010 55 1.053 0.1 -0.012 -0.012 02/04/2008 52 1.064 0.2 Total Hip(Left) 06/05/2022 67 0.821 -1.0 -0.178* -0.029* 01/22/2020 64 0.850 -0.8 -0.150* -0.047* 01/08/2014 58 0.897 -0.4 -0.102* -0.021 04/24/2010 55 0.918 -0.2 -0.081* -0.081* 02/04/2008 52 1.000 0.5 Total Hip(Right) 06/05/2022 67 0.797 -1.2 -0.129* 0.002 01/22/2020 64 0.796 -1.2 -0.130* -0.049* 01/08/2014 58 0.844 -0.8 -0.082* -0.034* 04/24/2010 55 0.879 -0.5 -0.047* -0.047* 02/04/2008 52 0.926 -0.1 *Denotes significance at 95% confidence level, LSC for AP Spine = 0.022 g/cm2, LSC for Total Hip = 0.027 g/cm2 Clinical Information Provided by Patient: Has used the following medications: Vitamin D, Calcium, Ariex Has the following medical conditions: Cancer Patient maximum height was 65 Menopause Age: 52 Drinks caffeinated beverages Onset of mens
== END ==
PROVIDERS: PCP Internal Medicine; Visit Provider Internal Medicine
DX: Z78.0 Asymptomatic menopausal state (principal); M85.89 Other specified disorders of bone density and structure, multiple sites
CPT/HCPCS: 77080

== ENCOUNTER 2022-08-21 09:06 | Outpatient (CLI) | payer MEDICARE, OTHER, SELFPAY ==
[2022-08-21 09:25] LABS: Basophils Absolute Auto 0.1 K/mm3 (0.0-0.1); Basophils Percent Auto 1.4 % (0.2-1.2); Eosinophils Absolute Auto 0.1 K/mm3 (0-0.3); Eosinophils Percent Auto 2.5 % (0-4.4); Hemoglobin 12.8 g/dL (12.0-15.0); Immature Granulocyte Absolute 0.01 K/mm3 (0.00-0.031); Immature Granulocyte Percent A 0.2 % (0-0.5); Lymphocytes Absolute Auto 1.58 K/mm3 (0.9-3.2); Lymphocytes Percent Auto 30.7 % (18.3-44.2); Mean Corpuscular HGB Conc 32.8 g/dl (32-36); Mean Corpuscular Hemoglobin 29.8 pg (26-34); Mean Corpuscular Volume 90.7 fl (80-100); Mean Platelet Volume 9.2 fl (7.4-10.4); Monocytes Absolute Auto 0.5 K/mm3 (0.1-0.6); Monocytes Percent Auto 8.8 % (2.6-8.5); Neutrophils Absolute Auto 2.9 K/mm3 (1.3-6.7); Neutrophils Percent Auto 56.4 % (45.5-73.1); Platelet Count Result 249 k/mm3 (150-375); Red Cell Distribution Width 12.4 % (11.5-14.5); White Blood Count 5.1 K/mm3 (4.5-10.0)
[2022-08-21 10:27] LABS: Alanine Aminotransferase 26 U/L (6-35); Albumin Level 4.4 g/dL (3.5-5.1); Alkaline Phosphatase 88 U/L (38-126); Anion Gap 6 mmol/L (8-16); Aspartate Amino Transferase 25 U/L (14-36); Bilirubin,Total 0.5 mg/dL (0.2-1.3); Blood Urea Nitrogen 17 mg/dL (7-17); Calcium 9.5 mg/dL (8.4-10.2); Carbon Dioxide 33 mmol/L (22-30); Chloride 102 mmol/L (98-107); Estimated Glomerular Filt Rate > 60; Glucose 161 mg/dL (65-110); Potassium 3.6 mmol/L (3.4-5.0); Sodium 141 mmol/L (137-145)
[2022-08-25 04:44] LABS: CA 15-3 11 U/mL (<32)
== END 2022-08-21 09:07 | disposition home or self-care (01) ==
LOC: ANHLAB 09:09
PROVIDERS: PCP Internal Medicine; Visit Provider Internal Medicine Hematology & Oncology
DX: C50.112 Malignant neoplasm of central portion of left female breast (principal); Z17.0 Estrogen receptor positive status [ER+]
CPT/HCPCS: 36415; 80053; 85025; 86300

== ENCOUNTER 2022-12-24 08:59 | Outpatient (CLI) | payer MEDICARE, OTHER, SELFPAY ==
--- NOTE | ~2022-12-24 | MM_ITS ---
EXAMINATION: MM screening jim BI w olivia HISTORY: Screening mammogram, history of left breast cancer TECHNIQUE: Craniocaudal and mediolateral oblique 3-D tomosynthesis images were obtained and synthetic 2-D images were generated. CAD analysis was submitted and interpreted. COMPARISON: 12/20/2021, 12/05/2021, 12/13/2020 BREAST PARENCHYMAL COMPOSITION: There are scattered areas of fibroglandular density. FINDINGS: There has been interval biopsy of the previously described indeterminate right breast calci fications. Areas of fat necrosis are noted in the breasts. Lumpectomy changes are noted in the left b reast. No suspicious mass, calcification, or architectural distortion are identified in either breast to suggest malignancy. There has been no suspicious interval change. IMPRESSION: 1. No mammographic evidence of malignancy. 2. Recommend routine screening mammography in one year. BI-RADS Category 2: Benign finding(s). Reviewed, dictated and finalized at location A.
== END 2022-12-24 09:00 | disposition home or self-care (01) ==
PROVIDERS: PCP Internal Medicine; Visit Provider Internal Medicine Hematology & Oncology
DX: Z12.31 Encounter for screening mammogram for malignant neoplasm of breast (principal)
CPT/HCPCS: 77063; 77067

== ENCOUNTER 2023-02-19 08:18 | Outpatient (CLI) | payer MEDICARE, OTHER, SELFPAY ==
[2023-02-19 08:34] LABS: Basophils Absolute Auto 0.1 K/mm3 (0.0-0.1); Basophils Percent Auto 1.1 % (0.2-1.2); Eosinophils Absolute Auto 0.2 K/mm3 (0-0.3); Eosinophils Percent Auto 3.3 % (0-4.4); Hematocrit 39.6 % (37.0-47.0); Hemoglobin 12.8 g/dL (12.0-15.0); Immature Granulocyte Absolute 0.01 K/mm3 (0.00-0.031); Immature Granulocyte Percent A 0.2 % (0-0.5); Lymphocytes Absolute Auto 1.83 K/mm3 (0.9-3.2); Lymphocytes Percent Auto 33.3 % (18.3-44.2); Mean Corpuscular HGB Conc 32.3 g/dl (32-36); Mean Corpuscular Hemoglobin 29.9 pg (26-34); Mean Corpuscular Volume 92.5 fl (80-100); Mean Platelet Volume 9.5 fl (7.4-10.4); Monocytes Absolute Auto 0.7 K/mm3 (0.1-0.6); Neutrophils Absolute Auto 2.8 K/mm3 (1.3-6.7); Neutrophils Percent Auto 50.1 % (45.5-73.1); Platelet Count Result 237 k/mm3 (150-375); Red Blood Count 4.28 M/mm3 (4.2-5.4); Red Cell Distribution Width 12.1 % (11.5-14.5); White Blood Count 5.5 K/mm3 (4.5-10.0)
[2023-02-19 12:33] LABS: Alanine Aminotransferase 25 U/L (6-35); Albumin Level 4.1 g/dL (3.5-5.1); Alkaline Phosphatase 53 U/L (38-126); Anion Gap 6 mmol/L (8-16); Aspartate Amino Transferase 28 U/L (14-36); Bilirubin,Total 0.4 mg/dL (0.2-1.3); Blood Urea Nitrogen 19 mg/dL (7-17); Calcium 9.3 mg/dL (8.4-10.2); Carbon Dioxide 30 mmol/L (22-30); Chloride 104 mmol/L (98-107); Estimated Glomerular Filt Rate > 60; Glucose 103 mg/dL (65-110); Potassium 3.8 mmol/L (3.4-5.0); Sodium 140 mmol/L (137-145)
[2023-02-22 06:40] LABS: CA 15-3 10 U/mL (<32)
== END 2023-02-19 08:19 | disposition home or self-care (01) ==
LOC: ANHLAB 08:21
PROVIDERS: PCP Internal Medicine; Visit Provider Internal Medicine Hematology & Oncology
DX: C50.112 Malignant neoplasm of central portion of left female breast (principal); Z17.0 Estrogen receptor positive status [ER+]
CPT/HCPCS: 36415; 80053; 85025; 86300

== ENCOUNTER 2023-08-20 08:39 | Outpatient (CLI) | payer MEDICARE, OTHER, SELFPAY ==
[2023-08-20 08:51] LABS: Basophils Percent Auto 0.7 % (0.2-1.2); Eosinophils Absolute Auto 0.2 K/mm3 (0-0.3); Hematocrit 38.1 % (37.0-47.0); Hemoglobin 12.5 g/dL (12.0-15.0); Immature Granulocyte Absolute 0.02 K/mm3 (0.00-0.031); Immature Granulocyte Percent A 0.4 % (0-0.5); Lymphocytes Absolute Auto 1.98 K/mm3 (0.9-3.2); Lymphocytes Percent Auto 36.5 % (18.3-44.2); Mean Corpuscular HGB Conc 32.8 g/dl (32-36); Mean Corpuscular Hemoglobin 30.4 pg (26-34); Mean Corpuscular Volume 92.7 fl (80-100); Mean Platelet Volume 9.7 fl (7.4-10.4); Monocytes Absolute Auto 0.7 K/mm3 (0.1-0.6); Monocytes Percent Auto 12.2 % (2.6-8.5); Neutrophils Absolute Auto 2.6 K/mm3 (1.3-6.7); Neutrophils Percent Auto 47.2 % (45.5-73.1); Platelet Count Result 234 k/mm3 (150-375); Red Blood Count 4.11 M/mm3 (4.2-5.4); Red Cell Distribution Width 11.9 % (11.5-14.5); White Blood Count 5.4 K/mm3 (4.5-10.0)
[2023-08-20 16:53] LABS: Alanine Aminotransferase 26 U/L (6-35); Albumin Level 4.1 g/dL (3.5-5.1); Alkaline Phosphatase 50 U/L (38-126); Anion Gap 5 mmol/L (8-16); Aspartate Amino Transferase 28 U/L (14-36); Bilirubin,Total 0.2 mg/dL (0.2-1.3); Blood Urea Nitrogen 16 mg/dL (7-17); Calcium 9.7 mg/dL (8.4-10.2); Carbon Dioxide 28 mmol/L (22-30); Chloride 108 mmol/L (98-107); Estimated Glomerular Filt Rate > 60; Glucose 107 mg/dL (65-110); Potassium 3.6 mmol/L (3.4-5.0); Sodium 141 mmol/L (137-145)
[2023-08-23 07:09] LABS: CA 15-3 12 U/mL (<32)
== END 2023-08-20 08:40 | disposition home or self-care (01) ==
LOC: ANHLAB 08:42
PROVIDERS: PCP Internal Medicine; Visit Provider Internal Medicine Hematology & Oncology
DX: C50.112 Malignant neoplasm of central portion of left female breast (principal); Z17.0 Estrogen receptor positive status [ER+]
CPT/HCPCS: 36415; 80053; 85025; 86300

== ENCOUNTER 2024-01-22 09:17 | Outpatient (CLI) | payer MEDICARE, OTHER, SELFPAY ==
--- NOTE | ~2024-01-22 | MM_ITS ---
EXAMINATION: MM screening jim BI w olivia HISTORY: Screening TECHNIQUE: Craniocaudal and mediolateral oblique 3-D tomosynthesis images were obtained and synthetic 2-D images were generated. CAD analysis was submitted and interpreted. COMPARISON: Comparison to multiple prior studies sequentially, with oldest reviewed study dated 10/2021. BREAST PARENCHYMAL COMPOSITION: Not dense: There are scattered areas of fibroglandular density. FINDINGS: There are 2 separate areas of fat necrosis in the left breast which are unchanged. No new m asses, calcifications or architectural distortion in the left breast to suggest malignancy. There is a tissue marker from previous benign right breast biopsy with associated distortion of the breast in the upper central right breast. No mammographic evidence for malignancy in the right breast. IMPRESSION: 1. No mammographic evidence of malignancy. 2. Recommend routine screening mammography in one year. BI-RADS Category 2: Benign finding(s). Reviewed, dictated and finalized at location B.
== END 2024-01-22 09:18 | disposition home or self-care (01) ==
LOC: ANHIMG 09:19
PROVIDERS: PCP Internal Medicine; Visit Provider Internal Medicine Hematology & Oncology
DX: Z12.31 Encounter for screening mammogram for malignant neoplasm of breast (principal)
CPT/HCPCS: 77063; 77067

== ENCOUNTER 2024-02-18 09:53 | Outpatient (CLI) | payer MEDICARE, OTHER, SELFPAY ==
[2024-02-18 10:11] LABS: Basophils Percent Auto 0.7 % (0.2-1.2); Eosinophils Absolute Auto 0.1 K/mm3 (0-0.3); Eosinophils Percent Auto 2.5 % (0-4.4); Hematocrit 37.1 % (37.0-47.0); Hemoglobin 12.1 g/dL (12.0-15.0); Immature Granulocyte Absolute 0.02 K/mm3 (0.00-0.031); Immature Granulocyte Percent A 0.4 % (0-0.5); Lymphocytes Absolute Auto 1.97 K/mm3 (0.9-3.2); Lymphocytes Percent Auto 34.8 % (18.3-44.2); Mean Corpuscular HGB Conc 32.6 g/dl (32-36); Mean Corpuscular Hemoglobin 30.4 pg (26-34); Mean Corpuscular Volume 93.2 fl (80-100); Mean Platelet Volume 9.7 fl (7.4-10.4); Monocytes Absolute Auto 0.6 K/mm3 (0.1-0.6); Monocytes Percent Auto 10.2 % (2.6-8.5); Neutrophils Absolute Auto 2.9 K/mm3 (1.3-6.7); Neutrophils Percent Auto 51.4 % (45.5-73.1); Platelet Count Result 237 k/mm3 (150-375); Red Blood Count 3.98 M/mm3 (4.2-5.4); Red Cell Distribution Width 12.2 % (11.5-14.5); White Blood Count 5.7 K/mm3 (4.5-10.0)
[2024-02-18 10:39] LABS: Alanine Aminotransferase 26 U/L (6-35); Albumin Level 4.1 g/dL (3.5-5.1); Alkaline Phosphatase 48 U/L (38-126); Anion Gap 9 mmol/L (4-12); Aspartate Amino Transferase 32 U/L (14-36); Bilirubin,Total 0.2 mg/dL (0.2-1.3); Blood Urea Nitrogen 18 mg/dL (7-17); Calcium 9.4 mg/dL (8.4-10.2); Carbon Dioxide 28 mmol/L (22-30); Chloride 102 mmol/L (98-107); Estimated Glomerular Filt Rate > 60; Glucose 139 mg/dL (65-110); Potassium 3.9 mmol/L (3.4-5.0); Sodium 139 mmol/L (137-145)
[2024-02-21 12:19] LABS: CA 15-3 14 U/mL (<32)
== END 2024-02-18 09:54 | disposition home or self-care (01) ==
LOC: ANHLAB 09:57
PROVIDERS: PCP Internal Medicine; Visit Provider Internal Medicine Hematology & Oncology
DX: C50.112 Malignant neoplasm of central portion of left female breast (principal); Z17.0 Estrogen receptor positive status [ER+]
CPT/HCPCS: 36415; 80053; 85025; 86300

== ENCOUNTER 2024-03-17 08:30 | Outpatient (RCR) | payer BC, MEDICARE, OTHER, SELFPAY ==
--- NOTE | 2019-09-11 09:41 | PDRADONCFUV ---
Assessment/Plan - Assessment No evidence of recurrent disease Now approximately 8 months since completing radiotherapy - Plan 1. Return to clinic for an in-person visit in 6 months or sooner as needed. 2. Continue anastrozole per Dr. Barrientos and follow-up with him in the interim. 3. Repeat mammograms are scheduled for December. At that start of our phone conversation, I explained to the patient the option of participating in a telemedicine visit during the [facility] [place] [address] emergency. After being given an opportunity to ask questions about and discuss this type of visit, the patient verbally consented to proceeding with the telephone/video visit. The patient understands that this service replaces an office visit and they may be billed and/or responsible for any applicable copayments. The patient has also been informed that the visit may not be totally secure and acknowledged the information. This was a telemedicine visit with Love Finney which took place via audio communication. During the visit, I was located at [facility] and the patient was located at home. The session started at 1000 and ended at 1007. Follow Up Note - Date/Time 09/11/19 09:41 - Identifying Data Asmita Cleary is a 64 y.o. female with a mammographically detected pathologic stage IIA [pT2 N0i+(sn) M0] intermediate grade invasive lobular carcinoma, ER/MT positive, HER2 positive, arising in the central aspect of the left breast. She is status post central left breast partial mastectomy with bilateral reduction mammoplasty and a negative sentinel lymph node biopsy. Resection margins were negative. Oncotype recurrence score was 9 with less than 1% benefit from chemotherapy. She underwent adjuvant radiotherapy between 12/30/2018 and 01/27/2019. Due to the [facility] [place] [address] emergency, her follow-up visit was conducted via telemedicine. - Interval History Since she was last seen, she has been doing well without any new problems. She has some fibrotic changes and occasional breast edema but denies new lumps, skin changes and nipple discharge. She has some persistent hyperpigmentation within the radiation zhao. She completed PT for lymphedema in April and has a tactile machine that she uses on occasion. She saw Dr. Barrientos in June and had a benign mammogram at the time. She is scheduled for a repeat mammogram in December. She is taking Arimidex with occasional tolerable hot flashes and no other side effects. She does report some sciatica that is relieved with one advil a day. She sees Dr. Barrientos again at the end of this month. He is following her hypercalcemia as well and will be checking PTH and Vitamin D levels with her next visit. H&P - Exam - General Sounds pleasant and in no distress. She is alert and oriented x 3. Reported pain rating is 0. - Exam Neurological: normal speech Psychological: mental status NL, mood NL - Radiologic Data EXAMINATION: MM diagnostic jim LT w olivia 06/08/2019 HISTORY: Left mastectomy for breast cancer in November 2018 TECHNIQUE: Additional 3-D tomosynthesis images of the left breast were performed and synthetic 2-D images were generated. CAD analysis was submitted and interpreted. COMPARISON: Comparison to multiple prior studies sequentially, with oldest reviewed study dated 07/07/2015. FINDINGS: Breast composed of scattered areas of fibroglandular density. There are postsurgical changes in the left breast, consistent with partial mastectomy with areas of fat necrosis. There are no suspicious masses, calcifications to suggest malignancy. IMPRESSION: 1. No mammographic evidence for malignancy in the left breast. Postsurgical changes. 2. Routine yearly screening mammogram and regular clinical breast examination are recommended. BI-RADS Category 2: Benign finding(s).
[2020-03-11 10:02] VITALS: BP 120/48; PULSE 68; RESP 20; TEMP 36.6; O2SAT 99
--- NOTE | 2020-03-11 10:06 | PDRADONCFUV ---
Assessment/Plan - Assessment No evidence of recurrent disease Now approximately 1 year and 2 months since completing radiotherapy - Plan 1. Return to clinic in 6 months or sooner as needed. 2. Continue anastrozole per Dr. Barrientos and follow-up with him in the interim. 3. Repeat mammograms as scheduled by Dr. Barrientos. 4. Management of osteopenia per Dr. Barrientos. Follow Up Note - Date/Time 03/11/20 10:06 - Identifying Data Asmita Cleary is a 65 y.o. female with a mammographically detected pathologic stage IIA [pT2 N0i+(sn) M0] intermediate grade invasive lobular carcinoma, ER/PA positive, HER2 positive, arising in the central aspect of the left breast. She is status post central left breast partial mastectomy with bilateral reduction mammoplasty and a negative sentinel lymph node biopsy. Resection margins were negative. Oncotype recurrence score was 9 with less than 1% benefit from chemotherapy. She underwent adjuvant radiotherapy between 12/30/2018 and 01/27/2019 and returns now for routine follow-up. - Interval History Since she was last seen for a telemedicine visit, she continues to do well and denies new problems. She underwent a bilateral mammogram on 12/22/2019 which was benign (BI-RADS category 2). She is following with Dr. Barrientos and denies major side effects from her Arimidex. She elected not to receive Prolia wich was recommended for worsening osteopenia. She is using Triamcinolone cream on her scar which was prescribed by her tug boat engineer. She is due for a left diagnostic mammogram in June 2020. H&P - Exam - General Appears well. NAD. AAOx3. - Vital Signs Vital Signs - 24 hr 03/11/20 10:02 Temperature 36.6 C Pulse Rate 68 Respiratory Rate 20 Blood Pressure 120/48 L Pulse Oximetry 99 Pain rating is 0. - Exam HEENT: EOMI, PERRLA, mucous membranes moist and pink Neck: supple. No: lymphadenopathy, thyromegaly Lungs: clear to auscultation, normal air movement Heart: no murmurs, gallops, or rubs, regular rhythm, regular rate Abdomen: abdomen soft, non-distended Extremities: No: edema Integumentary: no abnormalities Neurological: normal gait, normal speech Psychological: mental status NL, mood NL Other physical findings: Breasts: Bra size 42C. The breasts are status post bilateral reduction mammoplasty and are relatively symmetric in size. Scars are well healed. The left breast is status post nipple areolar/central breast lumpectomy with reconstruction and axillary yesy excision. There are palpable surgical changes in the lower left breast and inframammary fold with no overlying erythema or tenderness to palpation. - Radiologic Data EXAMINATION: MM diagnostic jim BI w olivia 12/22/2019 HISTORY: History of breast cancer. Recent breast reduction surgery. TECHNIQUE: Additional 3-D tomosynthesis images of the breasts were performed and synthetic 2-D images were generated. CAD analysis was submitted and interpreted. COMPARISON: Comparison to multiple prior studies sequentially, with oldest reviewed study dated 08/06/2016. BREAST PARENCHYMAL COMPOSITION: Breast composed of scattered areas of fibroglandular density. FINDINGS: There are surgical changes of bilateral breast reduction surgery. There are no suspicious masses, calcifications or architectural distortion in either breast to suggest malignancy. IMPRESSION: 1. No mammographic evidence for malignancy in either breast. 2. Routine yearly screening mammogram and regular clinical breast examination are recommended. BI-RADS Category 2: Benign finding(s).
--- NOTE | 2020-03-11 10:20 | PC.NURSE ---
I was present for the breast exam done by Dr Gary.
[2020-09-09 10:00] VITALS: BP 130/68; PULSE 66; RESP 20; TEMP 37.4; O2SAT 99
--- NOTE | 2020-09-09 10:03 | PDRADONCFUV ---
Assessment/Plan - Assessment No evidence of recurrent disease Now approximately 1 year and 8 months since completing radiotherapy - Plan 1. Return to clinic in 6 months or sooner as needed. 2. Continue anastrozole per Dr. Barrientos and follow-up with him in the interim. 3. Repeat mammograms as scheduled by Dr. Barrientos. 4. Management of osteopenia per Dr. Barrientos. Time spent with patient and reviewing medical record, including imaging and laboratory findings as well as notes from collaborating physicians: 20 minutes Follow Up Note - Date/Time 09/09/20 10:03 - Identifying Data Asmita Cleary is a 65 y.o. female with a mammographically detected pathologic stage IIA [pT2 N0i+(sn) M0] intermediate grade invasive lobular carcinoma, ER/DE positive, HER2 positive, arising in the central aspect of the left breast. She is status post central left breast partial mastectomy with bilateral reduction mammoplasty and a negative sentinel lymph node biopsy. Resection margins were negative. Oncotype recurrence score was 9 with less than 1% benefit from chemotherapy. She underwent adjuvant radiotherapy between 12/30/2018 and 01/27/2019 and returns now for routine follow-up. - Interval History Since she was last seen, Jaelyn has been doing well and denies new problems. She is still following closely with Dr. Barrientos and Christine Farrell NP. She is taking anastrozole without any major side effects. She has elected to forego Prolia for her worsening osteopenia and continue Vitamin D/Calcium supplementation. She sees Dr. Barrientos again next week. Left diagnostic mammogram on 06/07/2020 showed only benign findings. She is due for bilateral mammogram in the summer. H&P - Exam - General Appears well. NAD. AAOx3. - Vital Signs Vital Signs - 24 hr 09/09/20 10:00 Temperature 37.4 C Pulse Rate 66 Respiratory Rate 20 Blood Pressure 130/68 Pulse Oximetry 99 Pain rating is 0. - Exam HEENT: EOMI, PERRLA, mucous membranes moist and pink Neck: supple. No: lymphadenopathy, thyromegaly Lungs: clear to auscultation, normal air movement Heart: no murmurs, gallops, or rubs, regular rhythm, regular rate Abdomen: abdomen soft, non-distended Extremities: No: edema Integumentary: no abnormalities Neurological: normal gait, normal speech Psychological: mental status NL, mood NL Other physical findings: Breasts: Bra size 42C. The breasts are status post bilateral reduction mammoplasty and are relatively symmetric in size. Scars are well healed. The left breast is status post nipple areolar/central breast lumpectomy with reconstruction and axillary yesy excision. There is moderate fibrosis in the lower inner left breast with smaller overlying telangiectasia. No tenderness, nodularity or rash. - Radiologic Data EXAMINATION: MM diagnostic jim LT w olivia 06/07/2020 HISTORY: History of left breast cancer TECHNIQUE: Craniocaudal, mediolateral, and mediolateral oblique 3-D tomosynthesis images of the left breast were performed and synthetic 2-D images were generated. CAD analysis was submitted and interpreted. COMPARISON: 12/22/2019, 06/08/2019, 08/15/2018, 08/12/2018, 08/08/2017 BREAST PARENCHYMAL COMPOSITION: There are scattered areas of fibroglandular density. FINDINGS: Lumpectomy changes of the inner breast continue to evolve. There is no suspicious mass, calcification, or architectural distortion. There is been no suspicious interval change. IMPRESSION: 1. Evolving lumpectomy changes without mammographic evidence of malignancy. 2. Routine screening mammography is recommended. BI-RADS Category 2: Benign finding(s).
--- NOTE | 2020-09-09 10:18 | PC.NURSE ---
I was present for the breast exam done by Dr Gary.
[2021-03-14 09:27] VITALS: BP 126/60; PULSE 72; RESP 20; TEMP 37.4; O2SAT 99
--- NOTE | 2021-03-14 11:13 | PDRADONCFUV ---
Assessment/Plan - Assessment Asmita Cleary is a 65 y.o. female with a mammographically detected pathologic stage IIA [pT2 N0i+(sn) M0] intermediate grade invasive lobular carcinoma, ER/[place] positive, HER2 positive, arising in the central aspect of the left breast. She is status post central left breast partial mastectomy with bilateral reduction mammoplasty and a negative sentinel lymph node biopsy. Resection margins were negative. Oncotype recurrence score was 9 with less than 1% benefit from chemotherapy. She completed adjuvant radiotherapy 2 years 1.5 months ago. She has no clinical or mammographic evidence of tumor recurrence. - Plan 1. Return for follow-up in 1 year. 2. I discussed the role of regular moderate exercise (30 minutes 5 days/week or 150 minutes/week) and a low-fat diet in lowering breast cancer recurrence risk and cancer risk in general. 3. Continue taking Anastrozole per Dr Barrientos. 4. Seeing Dr. Barrientos in August 2020, q6mo. She no longer follows with her breast surgeon. 5. Bilateral diagnostic 3D mammograms due in December 2021. 6. One month history of intermittent dyspnea on exertion with no other localizing symptoms. She will see her bariatric physician tomorrow for evaluation. 7. She was encouraged to call with any questions or concerns prior to her next appointment. Follow Up Note - Date/Time 03/14/21 11:13 - Identifying Data Asmita Cleary is a 65 y.o. female with a mammographically detected pathologic stage IIA [pT2 N0i+(sn) M0] intermediate grade invasive lobular carcinoma, ER/OK positive, HER2 positive, arising in the central aspect of the left breast. She is status post central left breast partial mastectomy with bilateral reduction mammoplasty and a negative sentinel lymph node biopsy. Resection margins were negative. Oncotype recurrence score was 9 with less than 1% benefit from chemotherapy. She underwent adjuvant radiotherapy between 12/30/2018 and 01/27/2019. She returns now for routine follow-up. - Interval History Since she was last seen, Ms. Loya continues to do well without any new problems. Her only concern today is intermittent dyspnea on exertion which she notices most frequently when walking from her car to congregational. She does not feel short of breath while exercising and denies associated chest pain or wheezing. She has no known Covid19 infection history. No recent change in medications. She does have high blood pressure for which she takes a couple different medications. She denies unintentional weight loss, frequent or severe?headaches,?persistent?cough,?fevers or chills,?chest pain, abdominal or pelvic?discomfort, new bony pain, arm pain or swelling,?or new breast symptomatology. She is taking Arimidex under the direction of Dr. Barrientos and reports initially having hot flashes but that these resolved. Bilateral diagnostic 3D mammograms performed on 12/13/2020 were unremarkable. She has osteopenia for which she takes vitamin D and calcium supplements. She is a lifelong non-smoker. She exercises at least 34 times per week (1 hour of aerobics twice weekly, yoga 1-2 times per week) and is planning to start walking more. She reports having a fairly healthy diet. Review of Systems Per HPI, otherwse negative Pain Assessment: 0/10 (no pain) Pain Managment: no pain (no intervention needed) ECOG Performance Score: 0 (fully active, able to carry on all pre-disease performance without restriction) H&P - Exam - General General: A pleasant well-developed, well-nourished female resting comfortably in the exam room, in no acute distress. Neck: Supple without thyromegaly or masses. No JVD or edema. Lymphatics: No cervical, supraclavicular, infraclavicular, or axillary adenopathy. Lungs: Clear to auscultation bilaterally. No wheezes, rhonchi or rales. No dullness to percussion. Heart: Regular rate and rhythm. No murmurs, rubs, or gallops. Abdomen: Soft, nontender, nond
[2022-03-13 09:52] VITALS: BP 115/51; PULSE 66; RESP 20; TEMP 37.2; O2SAT 97
--- NOTE | 2022-03-13 10:03 | PDRADONCFUV ---
Assessment/Plan - Assessment Assessment Asmita Cleary is a 67 y.o. female with a mammographically detected pathologic stage IIA [pT2 N0i+(sn) M0] intermediate grade invasive lobular carcinoma, ER/CT positive, HER2 positive, arising in the central aspect of the left breast. She is status post central left breast partial mastectomy with bilateral reduction mammoplasty and a negative sentinel lymph node biopsy. Resection margins were negative. Oncotype recurrence score was 9 with less than 1% benefit from chemotherapy. She completed adjuvant radiotherapy 3 years ago. She has no clinical or mammographic evidence of tumor recurrence. - Plan Plan 1. Return for follow-up in 1 year. 2. I discussed the role of regular moderate exercise (30 minutes 5 days/week or 150 minutes/week) and a low-fat diet in lowering breast cancer recurrence risk and cancer risk in general. 3. Continue taking Anastrozole per Dr Barrientos. 4. Seeing Dr. Barrientos in Aug 2022, q6mo. She no longer follows with her breast surgeon. 5. Bilateral diagnostic 3D mammograms due in December 2022. Love Brannon Mai, MD This note was transcribed using '[employer]', a computerized voice recognition without a human rn pool. This report may or may not have been adjusted for typographical, grammatical and syntax errors. Follow Up Note - Date/Time 03/13/22 10:03 Identification Asmita Cleary is a 67 y.o. female with a mammographically detected pathologic stage IIA [pT2 N0i+(sn) M0] intermediate grade invasive lobular carcinoma, ER/CT positive, HER2 positive, arising in the central aspect of the left breast. She is status post central left breast partial mastectomy with bilateral reduction mammoplasty and a negative sentinel lymph node biopsy. Resection margins were negative. Oncotype recurrence score was 9 with less than 1% benefit from chemotherapy. She underwent adjuvant radiotherapy between 12/30/2018 and 01/27/2019. She returns now for routine follow-up. Interval History On 12/05/2021, bilateral screening mammogram demonstrated developing cluster of indeterminate right breast calcifications in the upper central breast with no mass. On 12/20/2021, bilateral diagnostic mammogram and left ultrasound were performed. There is a cluster of pleomorphic calcifications in the upper central right breast. In the left breast is a developing focal area of fat necrosis corresponding with the palpable area of concern, and on ultrasound there is a corresponding 1.7 cm complex solid mass 7:00, 7 cm from the nipple. On 02/08/2022, right breast stereotactic biopsy was performed. Pathology demonstrated benign fat necrosis and calcifications Since she was last seen, Ms. Loya continues to do well with no other new problems. She denies unintentional weight loss, frequent or severe?headaches,?new or worsening dyspnea, persistent?cough,?chest pain, abdominal or pelvic?discomfort, new bony pain, arm pain or swelling,?or new breast symptomatology. She is taking Arimidex under the direction of Dr. Barrientos and reports initially having hot flashes but that these resolved. Bilateral diagnostic 3D mammograms are due in December 2022. She has osteopenia for which she takes vitamin D and calcium supplements. She is a lifelong non-smoker. She exercises regularly (yoga, walking, aerobics twice weekly) and reports having a fairly healthy diet. Review of Systems Per HPI, otherwise negative Pain Assessment / Management Pain Assessment: 0/10 (no pain) Pain Management: no pain (no intervention needed) ECOG Performance Score: 0 (fully active, able to carry on all pre-disease performance without restriction) H&P - Exam - General Physical Examination General: A pleasant well-developed, well-nourished female resting comfortably in the exam room, in no acute distress. Neck: Supple without thyromegaly or masses. No JVD or edema. Lymphatics: No cervical, supraclavicular, infra
[2023-03-12 09:50] VITALS: BP 126/60; PULSE 64; TEMP 36.9; O2SAT 98
--- NOTE | 2023-03-12 10:06 | PDRADONCFUV ---
Assessment/Plan - Assessment Assessment Asmita Cleary is a 68 y.o. female with a mammographically detected pathologic stage IIA [pT2 N0i+(sn) M0] intermediate grade invasive lobular carcinoma, ER/[place] positive, HER2 positive, arising in the central aspect of the left breast. She is status post central left breast partial mastectomy with bilateral reduction mammoplasty and a negative sentinel lymph node biopsy. Resection margins were negative. Oncotype recurrence score was 9 with less than 1% benefit from chemotherapy. She completed adjuvant radiotherapy 4 years ago. She has no clinical or mammographic evidence of tumor recurrence. Plan 1. Return for follow-up in 1 year. 2. I discussed the role of regular moderate exercise (30 minutes 5 days/week or 150 minutes/week) in lowering breast cancer recurrence risk and cancer risk in general. 3. Continue taking Tamoxifen until at least Mar 2024, per Dr Barrientos. 4. Seeing Dr. Barrientos in Aug 2023, q6mo. She no longer follows with her breast surgeon. 5. Bilateral diagnostic 3D mammograms due in December 2023. Love Brannon Mai, MD This note was transcribed using '[employer]', a computerized voice recognition without a human basket hand braider. This report may or may not have been adjusted for typographical, grammatical and syntax errors. Follow Up Note - Date/Time 03/12/23 10:06 Identification Asmita Cleary is a 68 y.o. female with a mammographically detected pathologic stage IIA [pT2 N0i+(sn) M0] intermediate grade invasive lobular carcinoma, ER/[place] positive, HER2 positive, arising in the central aspect of the LEFT breast. She is status post central left breast partial mastectomy with bilateral reduction mammoplasty and a negative sentinel lymph node biopsy. Resection margins were negative. Oncotype recurrence score was 9 with less than 1% benefit from chemotherapy. She underwent adjuvant radiotherapy between 12/30/2018 and 01/27/2019. She returns now for a routine follow-up visit. Interval History On 12/24/2022, bilateral 3D screening mammogram demonstrated scattered areas of fibroglandular densities and areas of fat necrosis in the breasts with lumpectomy changes also noted in the left breast. No suspicious masses, architectural distortion, or clustered microcalcifications. Since she was last seen, Ms. Loya continues to do well with no new medical problems. She denies unintentional weight loss, frequent or severe?headaches,?new or worsening dyspnea, persistent?cough,?chest pain, new bony pain, arm pain or swelling,?or new breast symptomatology. She was switched from Arimidex to Tamoxifen over the past year under the direction of Dr. Barrientos due to development of osteopenia which for which she is taking vitamin D and calcium supplements. She denies experiencing side effects from Tamoxifen. Bilateral diagnostic 3D mammograms are due in December 2023. She is a lifelong non-smoker. She exercises regularly (yoga or aerobics class for ~ 50-60 minutes each twice weekly) and is planing to start walking. Review of Systems Per HPI, otherwise negative Pain Assessment / Management Pain Assessment: 0/10 (no pain) Pain Management: no pain (no intervention needed) ECOG Performance Score: 0 (fully active, able to carry on all pre-disease performance without restriction) Physical Examination General: Well-developed, well-nourished female resting comfortably in the exam room, in no acute distress. Neck: Supple without masses. No JVD or edema. Lymphatics: No cervical, supraclavicular, infraclavicular, or axillary adenopathy. Lungs: Clear to auscultation bilaterally. No wheezes, rhonchi or rales. No dullness to percussion. Heart: Regular rate and rhythm. No murmurs, rubs, or gallops. Abdomen: Soft, nontender, nondistended, without hepatosplenomegaly or masses. No rebound or guarding. Musculoskeletal: No tenderness over the axial or appendicular skeleton. Extremi
[2024-03-17 08:59] VITALS: PULSE 62; RESP 19; TEMP 36.9; O2SAT 98
--- NOTE | 2024-03-17 09:24 | PDRADONCFUV ---
Follow Up Note - Date/Time 03/17/24 09:24 - Interval History DOS 03/17/24 Identification Asmita Cleary is a 69 y.o. female with a mammographically detected pathologic stage IIA [pT2 N0i+(sn) M0] intermediate grade invasive lobular carcinoma, ER/NC positive, HER2 positive, arising in the central aspect of the LEFT breast. She is status post central left breast partial mastectomy with bilateral reduction mammoplasty and a negative sentinel lymph node biopsy. Resection margins were negative. Oncotype recurrence score was 9 with less than 1% benefit from chemotherapy. She underwent adjuvant radiotherapy between 12/30/2018 and 01/27/2019. She returns now for a routine follow-up visit. Interval History Since she was last seen, Ms. Loya continues to do well with no new medical problems. She denies unintentional weight loss, frequent or severe?headaches,?new or worsening dyspnea, persistent?cough,?chest pain, new bony pain, arm pain or swelling,?or new breast symptomatology. She remains on Tamoxifen under the direction of Dr. Barrientos due to development of osteopenia which for which she is taking vitamin D and calcium supplements. She denies experiencing side effects from Tamoxifen. Bilateral diagnostic 3D mammograms from 01/2024 showed DERECK. She is a lifelong non-smoker. She exercises regularly (yoga or aerobics class for ~ 50-60 minutes each twice weekly). Review of Systems Per HPI, otherwise negative Pain Assessment / Management Pain Assessment: 0/10 (no pain) Pain Management: no pain (no intervention needed) ECOG Performance Score: 0 (fully active, able to carry on all pre-disease performance without restriction) Physical Examination General: Well-developed, well-nourished female resting comfortably in the exam room, in no acute distress. Neck: Supple without masses. No JVD or edema. Lymphatics: No cervical, supraclavicular, infraclavicular, or axillary adenopathy. Lungs: Breathing comfortably on RA Extremities: No upper extremity lymphedema. No clubbing or cyanosis. Breasts: S/p bilateral breast reduction mammoplasty with well healed scars. The left breast is smaller and higher than the right breast. Examination of the right breast is unremarkable, with no erythema, edema, masses, or suspicious skin lesions. Examination of the left breast shows a well healed central lumpectomy incision with absence of the nipple areolar complex. No suspicious left breast masses or skin lesions/ulceration. Neurologic/Psychologic: ?Alert. ?Speech is fluent and comprehension appears intact. Normal affect and mood. Moves all 4 extremities well. Gait steady. Assessment Asmita Cleary is a 69 y.o. female with a mammographically detected pathologic stage IIA [pT2 N0i+(sn) M0] intermediate grade invasive lobular carcinoma, ER/NC positive, HER2 positive, arising in the central aspect of the left breast. She is status post central left breast partial mastectomy with bilateral reduction mammoplasty and a negative sentinel lymph node biopsy. Resection margins were negative. Oncotype recurrence score was 9 with less than 1% benefit from chemotherapy. She completed adjuvant radiotherapy 5 years ago. She has no clinical or mammographic evidence of tumor recurrence. Plan 1. Return for follow-up in 1 year. She can consider follow-up on a PRN basis provided she continues to follow closely with Dr. Barrientos. 2. I discussed the role of regular moderate exercise (30 minutes 5 days/week or 150 minutes/week) in lowering breast cancer recurrence risk and cancer risk in general. 3. Continue taking Tamoxifen as per Dr Barrientos. 4. Seeing Dr. Barrientos in Aug 2024, q6mo. She no longer follows with her breast surgeon. 5. Bilateral diagnostic 3D mammograms due in January 2025. Preston Perla MD Time spent: 30 min H&P - Exam - Vital Signs Vital Signs - 24 hr 03/17/24 08:59 Temperature 36.9 C Pulse Rate 62 Respiratory Rate 19 Pulse Oximet
== END 2024-03-17 09:00 ==
LOC: AMCRADONC 08:30
PROVIDERS: PCP Internal Medicine; Visit Provider Radiology Radiation Oncology
DX: C50.412 Malignant neoplasm of upper-outer quadrant of left female breast (principal); Z17.0 Estrogen receptor positive status [ER+]; Z08 Encounter for follow-up examination after completed treatment for malignant neoplasm; M85.89 Other specified disorders of bone density and structure, multiple sites; Z92.3 Personal history of irradiation; Z79.811 Long term (current) use of aromatase inhibitors; Z98.890 Other specified postprocedural states
CPT/HCPCS: 99199; 99202; 99211; 99212; G0463

== ENCOUNTER 2024-08-18 08:15 | Outpatient (CLI) | payer MEDICARE, OTHER, SELFPAY ==
[2024-08-18 08:28] LABS: Basophils Percent Auto 0.6 % (0.2-1.2); Eosinophils Absolute Auto 0.2 K/mm3 (0-0.3); Eosinophils Percent Auto 2.7 % (0-4.4); Hematocrit 38.1 % (37.0-47.0); Hemoglobin 12.6 g/dL (12.0-15.0); Immature Granulocyte Absolute 0.02 K/mm3 (0.00-0.031); Immature Granulocyte Percent A 0.3 % (0-0.5); Lymphocytes Absolute Auto 2.14 K/mm3 (0.9-3.2); Lymphocytes Percent Auto 34.3 % (18.3-44.2); Mean Corpuscular HGB Conc 33.1 g/dl (32-36); Mean Corpuscular Hemoglobin 30.4 pg (26-34); Mean Corpuscular Volume 91.8 fl (80-100); Mean Platelet Volume 9.1 fl (7.4-10.4); Monocytes Absolute Auto 0.8 K/mm3 (0.1-0.6); Monocytes Percent Auto 12.8 % (2.6-8.5); Neutrophils Absolute Auto 3.1 K/mm3 (1.3-6.7); Neutrophils Percent Auto 49.3 % (45.5-73.1); Platelet Count Result 233 k/mm3 (150-375); Red Blood Count 4.15 M/mm3 (4.2-5.4); White Blood Count 6.2 K/mm3 (4.5-10.0)
--- OUTSIDE RECORDS SUMMARY | 2024-08-18 08:29 | XMS_ITS | Encounter Summary ---
Author Organization [facility] Address [address] [place] [address] Care Team Providers Care Radiology Ct Technologist Name Role Phone Espinoza Li MD Primary Care Provider [phone] Encounter Details Date Type Department Care Team (Latest Contact Info) Description 04/16/2008 Outpatient Historical HIS IMG-LAB [facility], History Other Screening Mammogram Social History Tobacco Use Types Packs/Day Years Used Date Smoking Tobacco: Never Assessed Comments Unknown Sex and Gender Information Value Date Recorded Sex Assigned at Not on file Legal Sex Female 5:17 AM ALUMINUM WELDER Gender Identity Not on file Sexual Orientation Not on file documented as of this encounter Plan of Treatment Upcoming Encounters Date Type Department Care Team (Late st Contact Info) Description 08/25/2024 11:45 AM CDT Office Visit [facility] Oncology and Hematology - Kristian [address] [facility] [address] [place] [address] Carmine Barrientos MD [address] [facility] [address] [place] [address] documented as of this encounter Procedures Procedure Name Priority Date/Time Associated Diagnosis Comments MAMMO SCREEN BILAT W OR WO CAD Routine 04/16/2008 4:16 PM ALUMINUM WELDER documented in this encounter Results * MAMMO DIGITAL SCREEN BILAT (04/16/2008 4:16 PM ALUMINUM WELDER) Anatomical Region Laterality Modality Breast Bilateral Other 04/16/2008 4:16 PM ALUMINUM WELDER Narrative 04/26/2008 2:59 PM ALUMINUM WELDER [address] [address] [place], [place] [address] Admit Date: 04/16/2008 ALLY HACKETT Sex: F Admit Prov: DOCTOR, NOT O Date: 1955 Primary Care Prov: CMRN: [id number] [facility] [address] [place] [address] IMAGING SERVICES Ordering Prov: DOCTOR, NOT O Accession Number: [id number] Interpretation DIGITAL SCREENING MAMMOGRAM WITH COMPUTER-ASSISTED DIAGNOSIS Findings: The breasts were imaged with digital mammographic technique. The breasts are almost entirely fat. No significant mass, malignant calcification or architectural distortion is noted. The CAD system does not highlight any suspicious areas. Summary: No mammographic evidence of malignancy. There has been no significant change from prior study of 04/09. Recommendations: Bilateral yearly screening mammogram is recommended. Assessment BIRADS: 1-Negative Recommendation: Normal interval follow-up Dictated by: MARYBEL GARCIA Electronically signed by: MARYBEL GARCIA 04/26/2008 14:59 Transcribed: 04/26/2008 14:59 CXZ Procedure Note Marybel Garcia - 04/26/[address] [address] Admit Date: 04/16/2008 ALLY HACKETT Sex: F Admit Prov: DOCTOR, NOT O Date: 1955 Primary Care Prov: CMRN: [id number] [facility] [address] [place] [address] IMAGING SERVICES Ordering Prov: DOCTOR, NOT O Interpretation DIGITAL SCREENING MAMMOGRAM WITH COMPUTER-ASSISTED DIAGNOSIS Findings: The breasts were imaged with digital mammographictechnique. The breasts are almost entirely fat. No significant mass, malignant calcification or architectural distortion is noted. The CAD system does not highlight any suspicious areas. Summary: No mammographic evidence of malignancy. There has been no significant change from prior study of 04/09. Recommendations: Bilateral yearly screening mammogram is recommended. Assessment BIRADS: 1-Negative Recommendation: Normal interval follow-up Dictated by: MARYBEL GARCIA Electronically signed by: MARYBEL GARCIA 04/26/2008 14:59 Transcribed: 04/26/2008 14:59 CXZ us History Conversion MAMMO ORDERABLES Final Result documented in this encounter Visit Diagnoses Diagnosis Other screening mammogram documented in this encounter Care Teams Radiology Ct Technologist Relationship Specialty Start Date End Date Espinoza Li MD [address] [address] PCP - General Internal Medicine 08/27/18 documented as of this encounter
--- OUTSIDE RECORDS SUMMARY | 2024-08-18 08:29 | XMS_ITS | Clinical Summary ---
Author Organization [facility] Address [address] [place] [address] Care Team Providers Care Customer Quality Specialist Name Role Phone Espinoza Li MD Primary Care Provider [phone] Allergies Active Allergy Reactions Criticality Noted Date Comments Betadine Surgi-Prep Rash High 08/27/2018 Iodine Hives High 02/19/2019 Latex Anaphylaxis High 08/27/2018 Penicillins Rash Low 08/27/2018 Medications multivitamin/iro n/folic acid (CENTRUM WOMEN ORAL) Take by mouth daily. Active ergocalciferol, vitamin D2, (VITAMIN D ORAL) Take 1,000 mg by mouth daily . Active betamethasone dipropionate (DIPROSONE) 0.05 % Lotion 5 08/23/19 19 Active naproxen (NAPROSYN) 500 mg tablet 0 11/06/19 19 Active amLODIPine (NORVASC) 5 mg tablet amlodipine 5 mg tablet TAKE 1 TABLET BY MOUTH DAILY Active atenolol (TENORMIN) 100 mg tablet atenolol 100 mg tablet TAKE 1 TABLET BY MOUTH DAILY Active polycarbophil calcium (FIBERCON) 625 mg tablet FiberCon 625 mg tablet Take 1 tablet twice a day by oral route. Active levothyroxine 88 mcg tablet levothyroxine 88 mcg tablet TAKE ONE TABLET BY MOUTH ONCE DAILY Active potassium chloride (KLOR-CON) 20 mEq Extended Release tablet potassium chloride ER 20 mEq tablet,extended release(part/jeny t) Active triamterene-hydr oCHLOROthiazide (MAXZIDE) 75-50 mg tablet triamterene 75 mg-hydrochlorothi azide 50 mg tablet TK SS T PO D Active triamcinolone acetonide (KENALOG) 0.1 % Ointment Apply to affected area 2 times daily. Active calcium carbonate + vitamin D (CALTRATE+D) 600 mg(1,500mg) -400 unit Tablet calcium carbonate 600 mg (1,500 mg)-vitamin D3 400 unit tablet Take by oral route. Active multivitamin tx with iron and folic acid tablet (Centrum Women) 18-400 mg-mcg Tablet Centrum Women Ac tive Cholecalciferol, Vitamin D3, (Vitamin D3) 10 mcg (400 unit) capsule Vitamin D3 10/28/19 20 Active vit B cmplx 3-FA-Vit C-Biotin (RENAVITE-RX RX) 1-60-300 mg-mg-mcg Tablet Take 1 Tablet by mouth daily. 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 04/14/2020 Abnormal mammogram of left breast 08/27/2018 09/09/2018 Breast lump on left side at 12 o'clock position 08/27/2018 09/09/2018 Abnormal ultrasound of breast 08/27/2018 09/09/2018 Inversion of nipple 08/27/2018 09/10/19 19 Encounters Date Type Department Care Team Description 08/04/2024 External Device Data STL ABSTRACTION Provider, Abstract 07/22/2024 External Device Data STL ABSTRACTION Provider, Abstract 07/21/2024 External Device Data STL ABSTRACTION Provider, Abstract 06/25/2024 External Device Data STL ABSTRACTION Provider, Abstract 06/24/2024 External Device Data STL ABSTRACTION Provider, Abstract 06/23/2024 External Device Data STL ABSTRACTION Provider, Abstract 06/16/2024 External Device Data STL ABSTRACTION Provider, Abstract 06/09/2024 External Device Data STL ABSTRACTION Provider, Abstract from Last 3 Months Immunizations Immunization Administration Dates Next Due ([employer])(12 YR UP) COVID-19 VACCINE - EMERGENCY USE AUTHORIZATION, MRNA, [id number](PF) 30 MCG/0.3 ML IM SUSP 09/09/2020,08/19/2020 Family History Medical History Relation Name Comments Colon Polyps Brother Cancer Father Parkinson's Disease Mother Cancer Sister 1 Colon Polyps Sister 2 Relation Name Status Comments Brother Alive Father Mother Alive Sister 1 Alive Sister 2 Alive Social History Tobacco Use Types Packs/Day Years Used Date Smoking Tobacco: Never Smokeless Tobacco: Never Tobacco Cessation:Counseling Given: Not Answered Alcohol Use Standard Drinks/Week Comments No 0 (1 standard drink = 0.6 oz pur e alcohol) Comments No Sex and Gender Information Value Date Recorded Sex Assigned at Not on file Legal Sex Female 5:17 AM CHECKERER HAND Gender Identity Not on file Sexual Orientation Not on file Last Filed Vital Signs Vital Sign Reading Time Taken Comments Blood Pressure 103/69 02/26/2024 11:45 AM CDT Pulse 64 02/26/2024 11:45 AM CDT Temperature 36.3 C (97.3 F) 02/26/2024 11:45 AM CDT Respiratory Rate 15 02/26/2024 11:45 AM CDT Oxygen Saturation 96% 02/26/2024 11:45 AM CDT Inhaled Oxygen Concentration - - Weight 83 kg (183 lb) 02/26/2024 11:45 AM CDT Height 165.1 cm (5' 5 ) 08/17/2021 11:28 AM CDT Body Mass Index 30.45 08/17/2021 11:28 AM CDT Plan of Treatment Upcoming Encounters Date Type Department Care Team (Late st Contact Info) Description 08/25/2024 11:45 AM CDT Office Visit [facility] Oncology and Hematology - [place] [address] [facility] [address] [place] [address] Carmine Barrientos MD [address] [facility] [address] [place] [address] Health Maintenance Due Date Last Done Comments Pre-Diabetes and Diabetes Screening 1955 DTAP/TDAP/TD VACCINES (1 - Tdap) 02/17/1976 Traditional Medicare (ACO) A nnual Wellness Visit 02/17/1976 FIT-DNA Q 3 years 2002 FIT/FOBT Q 1 year 2002 Flex Sig/CT Colonography Q 5 years 2002 PNEUMOCOCCAL VACCINE 50+ YEA RS (1 of 1 - PCV) 2007 ZOSTER VACCINE (1 of 2) 2007 INFLUENZA VACCINE (#1) 2024 COVID-19 Vaccine (3 - 2023-2 5 season) 2024 09/09/2020, 08/19/2020 BREAST CANCER SCREENING 01/21/2025 01/22/20 24, 12/24/2022, 12/13/2020, Additional history exists COLORECTAL SCREENING 09/26/2030 09/26/2020 Colorectal Cancer Screening 09/26/2030 RSV VACCINE (60+ or ) (1 - 1-dose 75+ series) 02/17/2032 OSTEOPOROSIS SCREENING Completed 01/21/2020 Procedures Procedure Name Priority Date/Time Associated Diagnosis Comments MAMMOGRAM REPORT Routine 01/22/2024 4:12 PM CDT XR DEXA BONE DENSITY AXIAL 1 OR MORE SITES Routine 01/21/2020 Postmenopausal from Last 3 Months or Most Recently Relevant to Health Maintenance Results * MAMMOGRAM REPORT (01/22/2024 4:12 PM CDT) Carmine Barrientos MD MAMMO ORDERABLES Final Result * XR DEXA BONE DENSITY AXIAL 1 OR MORE SITES (01/21/2020) Anatomical Region Laterality Modality Other Christine CARRERO DIAGNOSTIC IMAGING ORDERA BLES Final Result from Last 3 Months or Most Recently Relevant to Health Maintenance Insurance MEDICARE PART A AND B [facility] [place] [address] Care Teams Customer Quality Specialist Relationship Specialty Start Date End Date Espinoza Li MD [address] [facility] [address] [place] [address] PCP - General Internal Medicine 08/27/18
--- OUTSIDE RECORDS SUMMARY | 2024-08-18 08:29 | XMS_ITS | Encounter Summary ---
Author Organization [facility] Address [address] [place] [address] Care Team Providers Care Chinese Teacher Name Role Phone Espinoza Li MD Primary Care Provider [phone] Encounter Details Date Type Department Care Team (Latest Contact Info) Description 04/23/2005 Outpatient Historical HIS IMG-LAB [facility] Chase John MD [address] [facility] [address] [place] [address] SCREENING MAMM-MAILG NEOPL NEC (Primary Dx) Social History Tobacco Use Types Packs/Day Years Used Date Smoking Tobacco: Never Assessed Comments Unknown Sex and Gender Information Value Date Recorded Sex Assigned at Not on file Legal Sex Female 5:17 AM FINANCIAL SERVICE REP Gender Identity Not on file Sexual Orientation Not on file documented as of this encounter Plan of Treatment Upcoming Encounters Date Type Department Care Team (Late st Contact Info) Description 08/25/2024 11:45 AM CDT Office Visit [facility] Oncology and Hematology - Kristian [address] [facility] [address] [place] [id number] Carmine Barrientos MD [address] [facility] [address] [place] [address] documented as of this encounter Visit Diagnoses Diagnosis Other screening mammogram- Primary documented in this encounter Care Teams Chinese Teacher Relationship Specialty Start Date End Date Espinoza Li MD [address] [facility] [address] [place] [address] (work) PCP - General Internal Medicine 08/27/18 documented as of this encounter
--- OUTSIDE RECORDS SUMMARY | 2024-08-18 08:29 | XMS_ITS | Encounter Summary ---
Author Organization [facility] Address [address] [place] [address] Care Team Providers Care Assistant Dean Name Role Phone Espinoza Li MD Primary Care Provider [phone] Encounter Details Date Type Department Care Team (Latest Contact Info) Description 04/08/2000 Outpatient Historical HIS [facility] Chase Durant MD [address] [facility] [address] [place] [address] Other screening mammogram (Primary Dx) Social History Tobacco Use Types Packs/Day Years Used Date Smoking Tobacco: Never Assessed Comments Unknown Sex and Gender Information Value Date Recorded Sex Assigned at Not on file Legal Sex Female 5:17 AM KENNEL TECHNICIAN Gender Identity Not on file Sexual Orientation Not on file documented as of this encounter Plan of Treatment Upcoming Encounters Date Type Department Care Team (Late st Contact Info) Description 08/25/2024 11:45 AM CDT Office Visit [facility] Oncology and Hematology - [place] [address] [facility] [address] [place] [address] Carmine Barrientos MD [address] [facility] [address] [place] [address] documented as of this encounter Visit Diagnoses Diagnosis Other screening mammogram- Primary documented in this encounter Care Teams Assistant Dean Relationship Specialty Start Date End Date Espinoza Li MD [address] [facility] [address] [place] [address] PCP - General Internal Medicine 08/27/18 documented as of this encounter
--- OUTSIDE RECORDS SUMMARY | 2024-08-18 08:29 | XMS_ITS | Encounter Summary ---
Author Organization [facility] Address [address] [place] [address] Care Team Providers Care Shell Trim Tool Setter Name Role Phone Espinoza Li MD Primary Care Provider [phone] Encounter Details Date Type Department Care Team (Latest Contact Info) Description 04/28/2003 Outpatient Historical HIS IMG[facility]LAB [facility] Chase John MD [address] [facility] [address] [place] [address] SCREENING MAMM-MAILG NEOPL-OTHER (Primary Dx) Social History Tobacco Use Types Packs/Day Years Used Date Smoking Tobacco: Never Assessed Comments Unknown Sex and Gender Information Value Date Recorded Sex Assigned at Not on file Legal Sex Female 5:17 AM RN DOCUMENT IMPROVEMENT SPECIALIST Gender Identity Not on file Sexual Orientation Not on file documented as of this encounter Plan of Treatment Upcoming Encounters Date Type Department Care Team (Late st Contact Info) Description 08/25/2024 11:45 AM CDT [facility] Oncology [facility] Hematology - [place]ian [address] [facility] [address] [place] [address] Carmine Barrientos MD [address] [facility] [address] [place] [address] documented as of this encounter Visit Diagnoses Diagnosis Other screening mammogram- Primary documented in this encounter Care Teams Shell Trim Tool Setter Relationship Specialty Start Date End Date Espinoza Li MD [address] [facility] [address] [place] [address] PCP - General Internal Medicine 08/27/18 documented as of this encounter
--- OUTSIDE RECORDS SUMMARY | 2024-08-18 08:29 | XMS_ITS | Encounter Summary ---
Author Organization [facility] Address [address] [place] [address] Care Team Providers Care Inspector Penetrant Name Role Phone Espinoza Li MD Primary Care Provider [phone] Encounter Details Date Type Department Care Team (Latest Contact Info) Description 04/29/2001 Outpatient Historical HIS IMG[facility]LAB [facility] Chase John MD [address] [facility] [address] [place] [address] SCREENING MAMM-MAILG NEOPL-OTHER (Primary Dx) Social History Tobacco Use Types Packs/Day Years Used Date Smoking Tobacco: Never Assessed Comments Unknown Sex and Gender Information Value Date Recorded Sex Assigned at Not on file Legal Sex Female 5:17 AM TOPPIECE CUTTER Gender Identity Not on file Sexual Orientation Not on file documented as of this encounter Plan of Treatment Upcoming Encounters Date Type Department Care Team (Late st Contact Info) Description 08/25/2024 11:45 AM CDT Office Visit [facility] Oncology and Hematology - [place] [address] [facility] [address] [place] [address] Carmine Barrientos MD [address] [facility] [address] [place] [address] documented as of this encounter Visit Diagnoses Diagnosis Other screening mammogram- Primary documented in this encounter Care Teams Inspector Penetrant Relationship Specialty Start Date End Date Espinoza Li MD [address] [facility] [address] [place] [address] PCP - General Internal Medicine 08/27/18 documented as of this encounter
--- OUTSIDE RECORDS SUMMARY | 2024-08-18 08:29 | XMS_ITS | Encounter Summary ---
Author Organization [facility] Address [address] [place] [address] Care Team Providers Care Squad Sergeant Name Role Phone Espinoza Li MD Primary Care Provider [phone] Encounter Details Date Type Department Care Team (Latest Contact Info) Description 04/09/2006 Outpatient Historical HIS IMG-LAB [facility] Chase John MD [address] [facility] [address] [place] [address] Other Screening Mammogram (Primary Dx) Social History Tobacco Use Types Packs/Day Years Used Date Smoking Tobacco: Never Assessed Comments Unknown Sex and Gender Information Value Date Recorded Sex Assigned at Not on file Legal Sex Female 5:17 AM RN WOUND CARE Gender Identity Not on file Sexual Orientation Not on file documented as of this encounter Plan of Treatment Upcoming Encounters Date Type Department Care Team (Late st Contact Info) Description 08/25/2024 11:45 AM CDT Office Visit [facility] Oncology and Hematology - [place] [address] [facility] [address] [place] [address] Carmine Barrientos MD [address] [facility] [address] [place] [address] documented as of this encounter Visit Diagnoses Diagnosis Other screening mammogram- Primary documented in this encounter Care Teams Squad Sergeant Relationship Specialty Start Date End Date Espinoza Li MD [address] [facility] 4 [place] [address] PCP - General Internal Medicine 08/27/18 documented as of this encounter
--- OUTSIDE RECORDS SUMMARY | 2024-08-18 08:29 | XMS_ITS | Encounter Summary ---
Author Organization [facility] Address [address] [place] [address] Care Team Providers Care Computer Technology Teacher Name Role Phone Espinoza Li MD Primary Care Provider [phone] Encounter Details Date Type Department Care Team (Latest Contact Info) Description 04/27/2002 Outpatient Historical HIS [facility] Chase John MD [address] [facility] [address] [place] [address] SCREENING MAMM-MAILG NEOPL-OTHER (Primary Dx) Social History Tobacco Use Types Packs/Day Years Used Date Smoking Tobacco: Never Assessed Comments Unknown Sex and Gender Information Value Date Recorded Sex Assigned at Not on file 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 Gender Identity Not on file Sexual Orientation Not on file documented as of this encounter Plan of Treatment Upcoming Encounters Date Type Department Care Team (Late st Contact Info) Description 08/25/2024 11:45 AM CDT Office Visit [facility] Oncology and Hematology - Kristian [address] [facility] [address] [place] [id number] Carmine Barrientos MD [address] [facility] [address] [place] [address] documented as of this encounter Visit Diagnoses Diagnosis Other screening mammogram- Primary documented in this encounter Care Teams Computer Technology Teacher Relationship Specialty Start Date End Date Espinoza Li MD [address] [facility] [address] [place] [address] PCP - General Internal Medicine 08/27/18 documented as of this encounter
--- OUTSIDE RECORDS SUMMARY | 2024-08-18 08:29 | XMS_ITS | Encounter Summary ---
Author Organization [facility] Address [address] [place] [address] Care Team Providers Care Primer Inspector Name Role Phone Espinoza Li MD Primary Care Provider [phone] Encounter Details Date Type Department Care Team (Latest Contact Info) Description 04/28/1999 Outpatient Historical HIS [facility] Chase Durant MD [address] [facility] [address] [place] [address] Other screening mammogram (Primary Dx) Social History Tobacco Use Types Packs/Day Years Used Date Smoking Tobacco: Never Assessed Comments Unknown Sex and Gender Information Value Date Recorded Sex Assigned at Not on file 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 Gender Identity Not on file Sexual Orientation Not on file documented as of this encounter Plan of Treatment Upcoming Encounters Date Type Department Care Team (Late st Contact Info) Description 08/25/2024 11:45 AM CDT Office Visit [facility] Oncology and Hematology - Kristain [address] [facility] [address] [place] [address] Carmine Barrientos MD [address] [facility] [address] [place] [address] documented as of this encounter Visit Diagnoses Diagnosis Other screening mammogram- Primary documented in this encounter Care Teams Primer Inspector Relationship Specialty Start Date End Date Espinoza Li MD [address] [facility] [address] [place] [phone] PCP - General Internal Medicine 08/27/18 documented as of this encounter
--- OUTSIDE RECORDS SUMMARY | 2024-08-18 08:29 | XMS_ITS | Encounter Summary ---
Author Organization [facility] Address 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 Gender Identity Not on file Sexual Orientation Not on file documented as of this encounter Plan of Treatment Upcoming Encounters Date Type Department Care Team (Late st Contact Info) Description 08/25/2024 11:45 AM CDT Office Visit [facility] Oncology and Hematology - Kristian [address] [facility] [address] [place] [address] Carmine Barrientos MD [address] [facility] [address] [place] [address] documented as of this encounter Visit Diagnoses Diagnosis Leiomyoma of uterus, unspecified- Primary documented in this encounter Care Teams Rail Tractor Operator Relationship Specialty Start Date End Date Espinoza Li MD [address] [facility] 4 [place] [phone] PCP - General Internal Medicine 08/27/18 documented as of this encounter
--- OUTSIDE RECORDS SUMMARY | 2024-08-18 08:29 | XMS_ITS | Encounter Summary ---
Author Organization [facility] Address [address] [place] [address] Care Team Providers Care Corporate Relations Director Name Role Phone Espinoza Li MD Primary Care Provider [phone] Encounter Details Date Type Department Care Team (Late Contact Info) Description 12/18/2018 Chart Note [facility] Radiation Therapy [address] [place] [address] [place] [address] [place] [address] Social History Tobacco Use Types Packs/Day Years Used Date Smoking Tobacco: Never Smokeless Tobacco: Never Alcohol Use Standard Drinks/Week Comments No 0 (1 standard drink = 0.6 oz pur e alcohol) Comments No Sex and Gender Information Value Date Recorded Sex Assigned at Not on file 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 Gender Identity Not on file Sexual Orientation Not on file documented as of this encounter Plan of Treatment Upcoming Encounters Date Type Department Care Team (Late st Contact Info) Description 08/25/2024 11:45 AM CDT Office Visit [facility] Oncology and Hematology - Kristian [address] [facility] [address] [place] [address] Carmine Barrientos MD [address] [facility] [address] [place] [address] documented as of this encounter Visit Diagnoses Not on filedocumented in this encounter Care Teams Corporate Relations Director Relationship Specialty Start Date End Date Espinoza Li MD [address] [address] PCP - General Internal Medicine 08/27/18 documented as of this encounter
--- OUTSIDE RECORDS SUMMARY | 2024-08-18 08:29 | XMS_ITS | Encounter Summary ---
Author Organization [facility] Address [address] [place] [address] Care Team Providers Care Web Pressman Name Role Phone Espinoza Li MD Primary Care Provider [phone] Encounter Details Date Type Department Care Team (Latest Contact Info) Description 04/14/1998 Outpatient Historical HIS 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 [address] [place] [address] Carmine Barrientos MD [address] [facility] [address] [place] [address] documented as of this encounter Visit Diagnoses Diagnosis Other screening mammogram- Primary documented in this encounter Care Teams Web Pressman Relationship Specialty Start Date End Date Espinoza Li MD [address] [facility] 4 [place] [phone] PCP - General Internal Medicine 08/27/18 documented as of this encounter
--- OUTSIDE RECORDS SUMMARY | 2024-08-18 08:29 | XMS_ITS | Encounter Summary ---
Author Organization [facility] Address 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 Gender Identity Not on file Sexual Orientation Not on file documented as of this encounter Plan of Treatment Upcoming Encounters Date Type Department Care Team (Late st Contact Info) Description 08/25/2024 11:45 AM CDT Office Visit [facility] Oncology and Hematology - Kristian [address] [facility] [address] [place] [address] Carmine Barrientos MD [address] [facility] [address] [place] [address] documented as of this encounter Visit Diagnoses Diagnosis Other screening mammogram- Primary documented in this encounter Care Teams Pasting Machine Offbearer Relationship Specialty Start Date End Date Espinoza Li MD [address] [facility] [address] [place] [address] PCP - General Internal Medicine 08/27/18 documented as of this encounter
--- OUTSIDE RECORDS SUMMARY | 2024-08-18 08:29 | XMS_ITS | Data Portability ---
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 Patient will come back in a year unless there are new symptoms. [email or web address] Not available 01/12/2020 13:36:04 01/12/2021 01/12/2021 Annual gynecological exam performed. Patient will come back in a year unless there are new symptoms. Not available 01/12/2021 10:01:16 09/25/2022 09/25/2022 Annual gynecological exam performed. Patient will come back in a year unless there are new symptoms. [email or web address] Not available 09/25/2022 11:01:05 Plan of Treatment Reminders Order Date Submit Date Provider Last Modified By Organization Details Last Modified Time Details Appointments None record ed. Lab None record ed. Referral None record ed. Procedures None record ed. Surgeries None record ed. Imaging None record ed. Medication Orders None record ed. Patient TargetsNo targets recorded. Patient Instructions Encounter Date Encounter Id Patient Instructions Last Modified By Organization Details Last Modified Time 01/12/2020 [id number] [email or web address] Not available 14:04:50 Reason for Referral None Reported. Problems Name Problem SNOMED Code Status Onset Date Resolution Date Notes Provider Name and Address Organization Details Recorded Time Speciali zed medical examinat ion Completed 201101/11/2021 Gynecolog ical Examinati on;Record ed Elsewhere : No Locati on: [facility] So urce: EHR Chron ic: N Practic e ID: [id number] Bill able Time: 03:30:00 PM Antionette summers [facility] 21:31:[address] Concept Completed 201501/11/2021 Encntr for gynaecological oncologist exam (general) (routine) w/o abn findings; Recorded Elsewhere : No Locati on: [facility] So urce: EHR Chron ic: N Practic e ID: [id number] Bill able Time: 09:30:00 AM Antionette Leal [facility] 21:31:28 Screenin g for malignan t neoplasm of cervix Completed 201201/11/2021 Screening for malignant neoplasms of the cervix;Re corded Elsewhere : No Locati on: [facility] So urce: EHR Chron ic: N Practic e ID: [id number] Bill able Time: 03:30:00 PM Antionette Leal [facility] 21:31:[address] Concept Completed 201601/11/2021 Encntr for general adult medical exam w/o abnormal findings; Recorded Elsewhere : No Locati on: [facility] So urce: EHR Chron ic: N Practic e ID: [id number] Bill able Time: 10:30:00 AM Antionette Leal [facility] 21:31:24 Screenin g for malignan t neoplasm of rectum Completed 201401/11/2021 Screening for malignant neoplasms of the rectum;Pr actice ID: [id number] Antionette Leal [facility] 21:31:19 Adult health examinat ion Completed 201401/11/2021 ROUTINE MEDICAL EXAM;Kaden rded Elsewhere : No Locati on: [facility] So urce: EHR Chron ic: N Practic e ID: [id number] Bill able Time: 03:30:00 PM Antionette Leal [facility] 08/11/202 1 21:31:01 Atrophic vaginiti s [id number] Completed 201301/11/2021 Postmenop ausal atrophic vaginitis ;Practice ID: [id number] Antionette Leal [facility] 21:31:06 Radiolog ic finding [id number] Completed 201801/11/2021 Oth abn and inconclus kirill findings on dx imaging of breast;Re corded Elsewhere : No Locati on: [facility] So urce: EHR Chron ic: N Practic e ID: [id number] Bill able Time: 01:59:09 PM Antionette Leal [facility] 21:31:10 Problem Notes None recorded. Procedures Surgical History Date Name Laterality Status Provider Name and Address Organization Details Recorded Time 06/05/19 23 Most Recent Bone Density completed [facility] 09/25/2022 11:02:20 12/07/19 22 Date of Last Mammogram completed [facility] 09/25/2022 11:02:20 09/27/19 21 Date of Last Colonoscopy completed [facility] 09/25/2022 11:03:57 01/02/20 19 Date of Last Pap Smear completed [facility] 01/12/2021 10:01:57 09/02/19 09 completed [facility] 09/25/2022 11:02:20 Breast Biopsy completed [facility] 09/25/2022 11:02:28 Breast Surgery completed [facility] 09/25/2022 11:02:28 colonoscopy completed Sunshine Gannon [facility] 01/11/2020 17:17:30 Hysteroscopy completed Sunshine Gannon [facility] 01/11/2020 17:17:38 Imaging Results None recorded. Procedure Notes None recorded. Medical Equipment None Reported. Allergies Allergen ID Allergen Name Allergen Category Reaction Reaction Severity Criticality Documentation Date Start Date Code Code System Note Provider Name and Address Organization Details Recorded Time 78280 povidone- iodine medicatio n Not available Not available Not available 05/20/2020 8611 RxNorm Comme nt: [facility] Agent : Betad ine; [facility] Available [facility] 0 14:15:01 13580 Product containin g penicilli n (product) medicatio n Not available Not available Not available 05/20/2020 35705 8001 SNOMED Comme nt: [facility]; Not Available [facility] 0 14:15:01 1654 latex environme nt,medica tion Not available Not available Not available 01/11/2020 84011 91 RxNorm Sunshine Gannon kristopher, [facility] 0 17:15:04 1655 povidone medicatio n Not available Not available Not available 01/11/2020 8610 RxNorm Sunshine Gannon kristopher, [facility] 0 17:15:11 1656 soap medicatio n Not available Not available Not available 01/11/2020 32348 UNK Sunshine Gannon kristopher, [facility] 0 17:15:15 Medications Name Sig Start Date Stop Date Status Note LastModified by Organization Details LastModified Time anastrozo le 1 mg tablet TAKE 1 TABLET BY MOUTH EVERY DAY 09/25 completed Not Available Not Available Not Available triamtere ne (bulk) powder 01/11 completed Prescrib ed Elsewher e: Yes Loca tion: [facility] odify By: peter munozuntclary DateTime : 12/12/19 16 09:30:00 AM Not Available Not Available Not Available clindamyc in HCl 300 mg capsule 01/11 completed Not Available Not Available Not Available atenolol 100 mg tablet TAKE 1 TABLET BY MOUTH EVERY DAY active Not Available Not Available No t Available atenolol 25 mg tablet take 1 tablet by oral route every day 01/11 completed Prescrib ed Elsewher e: Yes Loca tion: Alexandro alonzo [facility] odify By: tanmay Irving nter DateTime : 11/05/19 12 07:03:48 PM Not Available Not Available Not Available amlodipin e 5 mg tablet TAKE 1 TABLET BY MOUTH EVERY DAY active Not Available Not Available No t Available doxycycli ne monohydra te 100 mg tablet TAKE ONE TABLET BY MOUTH TWICE DAILY 09/25 completed Not Available Not Available Not Available Norvasc 2.5 mg tablet take 1 tablet by oral route every day 12/06 completed Prescrib ed Elsewher e: Yes Loca tion: Alexandro alonzo [facility] odify By: peter munozuntclary DateTime : 12/12/19 16 09:30:00 AM Not Available Not Available Not Available FiberCon 625 mg tablet active Prescrib ed Elsewher e: Yes Loca tion: Alexandro alonzo [facility] odify By: tanmay Irving nter DateTime : 11/05/19 12 07:03:48 PM Not Available Not Available Not Available levothyro xine 88 mcg tablet TAKE 1 TABLET BY MOUTH EVERY DAY active Not Available Not Available No t Available potassium 99 mg tablet 01/12 completed Prescrib ed Elsewher e: Yes Loca tion: Alexandro alonzo [facility] odify By: tanmay Irving nter DateTime : 11/05/19 12 07:03:48 PM Not Available Not Available Not Available potassium chloride ER 20 mEq tablet,ex tended release(p art/cryst ) TAKE 1 TABLET BY MOUTH TWICE A DAY active Not Available Not Available No t Available Synthroid 25 mcg tablet take 1 tablet by oral route every day 01/12 completed Prescrib ed Elsewher e: Yes Loca tion: Alexandro alonzo [facility] odify By: tanmay Irving ntclary DateTime : 11/05/19 12 07:03:48 PM Not Available Not Available Not Available Dyrenium 50 mg capsule take 1 capsule by oral route every day after a meal 12/17 completed Prescrib ed Elsewher e: Yes Loca tion: Alexandro alonzo [facility] odify By: lsloan E ncounter DateTime : 12/07/19 15 03:30:00 PM Not Available Not Available Not Available mupirocin 2 % topical ointment APPLY TO CHEST TWICE DAILY NEEDED active Not Available Not Available No t Available triamtere ne 75 mg-hydroc hlorothia zide 50 mg tablet TAKE ONE-HALF (1/2) TABLET BY MOUTH DAILY active Not Available Not Available No t Available tamoxifen 20 mg tablet TAKE 1 TABLET BY MOUTH EVERY DAY active Not Available Not Available No t Available Vitamins and Minerals tablet active Prescrib ed Elsewher e: Yes Loca tion: [facility] odify By: yeimi oconnell DateTime : 11/06/19 12 03:30:00 PM Not Available Not Available Not Available Premarin 0.625 mg/gram vaginal cream insert (1G) by vaginal route once a month as needed 01/08 completed Prescrib ed Elsewher e: No Locat ion: [facility] odify By: lilly underwood DateTime : 12/19/19 18 10:00:00 AM Not Available Not Available Not Available potassium acetate 01/12 completed Not Available Not Available Not Available Norvasc 01/11 completed Not Available Not Available Not Available Synthroid 01/11 completed Not Available Not Available Not Available atenolol 01/11 completed Not Available Not Available Not Available triamtere ne 01/11 completed Not Available Not Available Not Available Vitamin D3 01/11 completed Not Available Not Available Not Available FiberCon 01/11 completed Not Available Not Available Not Available Vitamin And Mineral 01/11 completed Not Available Not Available Not Available Vitamin D3 10 mcg (400 unit) capsule active Prescrib ed Elsewher e: Yes Loca tion: [facility] odify By: lilly Salomon r DateTime : 01/09/20 03:00:00 PM Not Available Not Available Not Available Afluria Qd (36 mos up)(PF)60 mcg (15 mcg x4)/0.5 mL IM syringe 01/11 completed Not Available Not Available Not Available Flowflex COVID-19 Antigen Home Test kit 09/25 completed Not Available Not Available Not Available Vitals Date Recorded Body height Body mass index (BMI) Body weight Systolic blood pressure Diastolic blood pressure Provider Name and Address Organization Details Last Updated DateTime 01/12/2021 163.83 cm 31.3 kg/m2 15393.59 g 114 mm[Hg] 69 mm[Hg] Antionette Elvis [facility] 1 10:01:49 Date Recorded Body height Body mass index (BMI) Body weight Systolic blood pressure Diastolic blood pressure Provider Name and Address Organization Details Last Updated DateTime 01/12/2020 167.64 cm 29.4 kg/m2 32029.81 g 132 mm[Hg] 69 mm[Hg] Sunshine Gannon [facility] 0 13:41:06 Date Recorded Body weight Systolic blood pressure Diastolic blood pressure Provider Name and Address Organization Details Last Updated DateTime 09/25/2022 99076.18 g 123 mm[Hg] 76 mm[Hg] Antionette Del Castillo [facility] 09/25/2022 11:01:53 Social History Question Answer Notes LastModified by Organizat ion Details LastModified Time Tobacco Smoking Status Never Smoker [facility] 09/25/2022 10:51:33 Do You Have An Advance Directive? Yes Information n ot available 01/12/2021 What Is Your Level Of Alcohol Consumption? Occasional Information not available 01/12/2021 How Many Years Have You Consumed Alcohol? 40 Information not available 01/12/2021 Are You Blind Or Do You Have Difficulty Seeing? No Information n ot available 01/11/2021 What Is Your Level Of Caffeine Consumption? Occasional Information not available 01/11/2021 How Much Tobacco Do You Chew? None Information not available 01/12/2021 In The 14 Days Before Symptom Onset, Have You Had Close Contact With A Laboratory-confirm ed COVID-19 While That Case Was Ill? No Information n ot available 01/12/2021 In The 14 Days Before Symptom Onset, Have You Had Close Contact With A Person Who Is Under Investigation For COVID-19 While That Person Was Ill? No Information not available 01/12/2021 Have You Been To An Area Known To Be High Risk For COVID-19? No Information not available 01/12/2021 Are You Deaf Or Do You Have Serious Difficulty Hearing? Yes Information not available 01/12/2021 What Type Of Diet Are You Following? REGULAR Information n ot available 01/11/2021 What Is The Highest Grade Or Level Of School You Have Completed Or The Highest Degree You Have Received? [id number] Information not available 01/12/2021 What Is Your Occupation? Retired Information not available 01/12/2021 Are There Any Guns Present In Your Home? No Information not available 01/12/2021 Do You Use Protection During Sex? No Information not available 01/12/2021 Do You Use Your Seat Belt Or Car Seat Routinely? Yes Information not available 01/11/2021 Do You Have Smoke And Carbon Monoxide Detectors In Your Home? Yes Information not available 01/11/2021 How Much Tobacco Do You Smoke? No Information not available 01/12/2021 Do You Feel Stressed (tense, Restless, Nervous, Or Anxious, Or Unable To Sleep At Night)? [id number] Information not available 01/12/2021 Do You Use Any Illicit Or Recreational Drugs? No Information not available 01/11/2021 Do You Use Sunscreen Routinely? Yes Information not available 01/11/2021 Have You Used IV Drugs? No Information not available 01/12/2021 Sex: Unknown Functional Status Question Answer Note LastModified by Organization D etails LastModified Time Are you able to walk? YESWOREST Information not available 01/11/2021 What is your exercise level? Moderate Information not available 01/12/2021 Mental Status None recorded. Family History Relationship Description Onset Age of this Age Resolved Age Notes LastModified by Organization Details LastModified Time Sister Carcinoma in situ of breast [email or web address] Not available 2022 10:51:32 Mother Disorder of thyroid gland [email or web address] Not available 2019 17:16:38 Father Hypertensive disorder [email or web address] Not available 2019 17:16:45 Maternal Grandmother Diabetes mellitus [email or web address] Not available 2019 17:17:12 Maternal Uncle Diabetes mellitus [email or web address] Not available 2019 17:17:12 Maternal Aunt Carcinoma in situ of lung [email or web address] Not available 10:51:32 Medical History Condition Response Diabetes N Thyroid Problems Y Hypertension Y Breast Cancer Y Gynecological History Statement/Question Response Abnormal Pap N Date of Last Mammogram 12/06/2021 Date of LMP 06/03/2008 On BCP's at Conception? N Y STIs/STDs N HPV Vaccine N Current Control Method Menopause Age at First Child 33 If Post Menopausal, Age at Menopause 53 Date of Last Colonoscopy 09/26/2020 Most Recent Bone Density 06/05/2022 Sexually Active? N Age of first menstrual cycle 15 Date of Last Pap Smear 01/01/2019 Sexual Problems? Y LMP Approximate 09/01/2008 N Obstetrics History GPAL:G 3 P 0 0 1 2 Type Value Spontaneous 1 Living 2 Total 3 Past Encounters Encounter ID Performer Location Encounter Start Date Encounter Closed Date Diagnosis/Indication Diagnosis SNOMED-CT Code Diagnosis ICD10 Code Diagnosis Note [id number] Iwona Conner , [facility] [address] [address] 01/12/2020 13:33:19 01/12/2020 14:11:29 Gynecologic examination 82101900 Z01.419 Take Calcium with Vitamin D 12-1500mg daily. Do monthly self breast exams. It is advised to get annual flu shot in the fall and she could obtain at [facility] or [facility] clinic. If you haven't received the Tdap vaccine in the last 10 years you should obtain one as well. Have mammogram yearly, bone density every 2-3 years and colonoscop y every 5-10 years depending on findings and history. Engage in daily exercise of low impact aerobic exercise 45-60 minutes 4-5 times weekly. Avoid tobacco and illicit drugs as well as using moderation with alcohol intake less than 1-2 8 oz beverages daily. This lifestyle behavior pattern will lead to less health conditions and longer life span. If BMI greater than 25 weight watchers or dietary consult advised. Questions have been answered. Patient appears to understand instructio ns, but if you have any further questions call or respond to this email Breast ONC doctor is managing all breast care/scree nings including Dexa since she is on anastrozol e. Pap Hx is wnl Monogamous relations ip We agreed to defer pap this year since all have been neg including HPV neg unless otherwise indicated. Discussed asccp guidelines & if pap/hpv continue to be neg will d/c after age 65yo unless otherwise indicated. [id number] Iwona Conner [facility] [address] [address] 01/12/2021 09:42:24 01/12/2021 12:16:14 Gynecologic examination 86686451 Z01.419 Take Calcium with Vitamin D 12-1500mg daily. Do monthly self breast exams. It is advised to get annual flu shot in the fall and she could obtain at [facility] or [facility] care clinic. If you haven't received the Tdap vaccine in the last 10 years you should obtain one as well. Have mammogram yearly, bone density every 2-3 years and colonoscop y every 5-10 years depending on findings and history. Engage in daily exercise of low impact aerobic exercise 45-60 minutes 4-5 times weekly. Avoid tobacco and illicit drugs as well as using moderation with alcohol intake less than 1-2 8 oz beverages daily. This lifestyle behavior pattern will lead to less health conditions and longer life span. If BMI greater than 25 weight watchers or dietary consult advised. Questions have been answered. Patient appears to understand instructio ns, but if you have any further questions call or respond to this email Breast ONC doctor is managing all breast care/scree nings including Dexa since she is on anastrozol e. Pap Hx is wnl Monogamous relations ip We agreed to defer pap this year since all have been neg including HPV neg unless otherwise indicated. Discussed asccp guidelines & if pap/hpv continue to be neg will d/c after age 67yo unless otherwise indicated. [id number] Iwona Conner [facility] [address] [address] 09/25/2022 10:51:25 09/25/2022 11:25:29 Gynecologic examination [id number] Z01.419 Take Calcium with Vitamin D 12-1500mg daily. Do monthly self breast exams. It is advised to get annual flu shot in the fall and she could obtain at [facility] or [facility] clinic. If you haven't received the Tdap vaccine in the last 10 years you should obtain one as well. Have mammogram yearly, bone density every 2-3 years and colonoscop y every 5-10 years depending on findings and history. Engage in daily exercise of low impact aerobic exercise 45-60 minutes 4-5 times weekly. Avoid tobacco and illicit drugs as well as using moderation with alcohol intake less than 1-2 8 oz beverages daily. This lifestyle behavior pattern will lead to less health conditions and longer life span. If BMI greater than 25 weight watchers or dietary consult advised. Questions have been answered. Patient appears to understand instructio ns, but if you have any further questions call or respond to this emailPap/h pv sent STD Screen declined Genetic Screen discussed Colon Screen UTD PCP 2020 Dexa Screen UTD PCP 2022 Routine Labs UTD PCP 2022Mammo- Breast care managed by oncologist . Health Concerns Section Related Observation LastModified by Organization Detai ls LastModified Time None Recorded Concern Status LastModified by Organization Details LastModified Time None Recorded Advance Directives Directive Y: Payers Encounter Date Sequence Insurance Name Policy Number Policy Waters Covered Member ID Waters Member ID Guarantor Name 01/12/2020 1 [place] [id number] Asmita Madiha [id number] Asmita Madiha 01/12/2021 1 [place] [id number] Asmita Cleary [id number] Asmita Cleary 09/25/2022 1 [place] Asmita Rocio Madiha [id number] Asmita Cleary 09/25/2022 2 [employer] (MEDICARE SUPPLEMENT) Asmita Rocio Madiha [id number] Asmita Cleary Notes Date Note Type Note Provider Name and Address Organization Details Recorded Time 01/12/2020 text/html Annual GYNReport ed bypatient.History:n o gynecologic complaints Menstrual cycle:Normal menses Urinary symptoms:No hematuria; No incontinence Vulva:No genital lesion Vagina:Normal vaginal discharge Breast:No breast pain; No breast lump; No nipple discharge Current Contraception:Monog amous relationship; postmenopause Sexual complaints:No sexual complaints; No pain during intercourse; Normal libido Menopausal Symptoms:No menopausal symptoms; Normal vaginal lubrication Psychological symptoms:No depression; No anxiety; No PMDD Preventive measures:Encourage self breast examination; Encourage regular exercise; Encourage no tobacco use; Encourage regular mammograms starting age 40; Needs to schedule mammogram; Up to date on colonoscopy screening; Mammo's ordered by Onc doctor as is Dexa. Hx of breast cancer on anastrozole now. Iwona Conner [facility] [address], [place], [address], [facility] 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 Post-MenopausalRepo rted bypatient.Menopausa l Symptoms:no menopausal symptoms; normal vaginal lubrication Vaginal Bleeding:history of menopause having occurred; no history of post menopausal bleeding Urinary Symptoms:no hematuria; no incontinence; no nocturia; no urinary frequency Vulva:no genital lesion; no vulvar atrophy Vagina:normal vaginal discharge; no vaginal atrophy Breast:no breast lump; no nipple discharge; no breast pain Sexual Complaints:no sexual complaints Psychological Symptoms:no depression; no anxiety Preventive Measures:encourage regular mammograms starting age 40; encourage self breast examination; encourage regular exercise; encourage no tobacco use; mammogram performed within the past year; history of recent colonoscopy (09/2020); Dexa-done by oncologist walter 2019. Iwona Conner [facility] [address], [place], [address], [facility] 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 Post-MenopausalRepo rted bypatient.Menopausa l Symptoms:no menopausal symptoms; normal vaginal lubrication Vaginal Bleeding:history of menopause having occurred; no history of post menopausal bleeding Urinary Symptoms:no hematuria; no incontinence; no nocturia; no urinary frequency Vulva:no genital lesion; no vulvar atrophy Vagina:normal vaginal discharge; no vaginal atrophy Breast:no breast lump; no nipple discharge; no breast pain Sexual Complaints:no sexual complaints Psychological Symptoms:no depression; no anxiety Preventive Measures:encourage regular mammograms starting age 40; encourage self breast examination; encourage regular exercise; encourage no tobacco use; mammogram performed within the past year; history of recent colonoscopy Iwona Conner [facility]- [address], [place], [address], [facility] 09/25/2022 11:16:04 OBGyn Episode Ob Episode Information Episode Created Date Number of Fetuses Patient Bloodtype Patient rh Status Prepregnancy Weight lbs Domestic Partner Domestic Partner Phone Father Name Construction Equipment Technician Status 01/13/20 21 1 CLOSED Fetus Data First Name Last Name Admitted to NICU Weight (g) Sex Living Outcome Pediatric Complications Fetus ID Race Codes Race Delivery Type F Full Term [id number] Jb Calculation Initial Jb Date Initial Exam Date Initial Exam Provider Initial Ultrasound Date Last Menstrual Period Date Ultra Sound Weeks Gestation 0 Eighteen To Twenty Week Jb Update Ultra Sound Date Fundal Height At Umbil Quickening Date Ultra Sound Latest Weeks Gestation Final Jb Confirmed By Final Jb Confirmed Date Final Jb Date Ultra Sound Latest Days Gestation 0 0 Menstrual History Last Menstrual Date Menses Monthly On Bcp Conception Prior Menses Frequency Hcg Plus Date Menarche Onset Age Delivery Information Delivery Date Delivery Type Labor Anesthesia Weeks Gestation Incision Type Labor Labor Length Hrs Delivered By Post Complications Tubal Sterilization Discharge Date Comments 8 Discharge Information Feeding Method Contraceptive Method Maternal HG B and HCT Levels Ob Episode Information Episode Created Date Number of Fetuses Patient Bloodtype Patient rh Status Prepregnancy Weight lbs Domestic Partner Domestic Partner Phone Father Name Construction Equipment Technician Status 01/13/20 21 1 CLOSED Fetus Data First Name Last Name Admitted to NICU Weight (g) Sex Living Outcome Pediatric Complications Fetus ID Race Codes Race Delivery Type , Spontane ous [id number] Jb Calculation Initial Jb Date Initial Exam Date Initial Exam Provider Initial Ultrasound Date Last Menstrual Period Date Ultra Sound Weeks Gestation 0 Eighteen To Twenty Week Jb Update Ultra Sound Date Fundal Height At Umbil Quickening Date Ultra Sound Latest Weeks Gestation Final Jb Confirmed By Final Jb Confirmed Date Final Jb Date Ultra Sound Latest Days Gestation 0 0 Menstrual History Last Menstrual Date Menses Monthly On Bcp Conception Prior Menses Frequency Hcg Plus Date Menarche Onset Age Delivery Information Delivery Date Delivery Type Labor Anesthesia Weeks Gestation Incision Type Labor Labor Length Hrs Delivered By Post Complications Tubal Sterilization Discharge Date Comments 1 Discharge Information Feeding Method Contraceptive Method Maternal HG B and HCT Levels Ob Episode Information Episode Created Date Number of Fetuses Patient Bloodtype Patient rh Status Prepregnancy Weight lbs Domestic Partner Domestic Partner Phone Father Name Construction Equipment Technician Status 01/13/20 21 1 CLOSED Fetus Data First Name Last Name Admitted to NICU Weight (g) Sex Living Outcome Pediatric Complications Fetus ID Race Codes Race Delivery Type Full Term [id number] Jb Calculation Initial Jb Date Initial Exam Date Initial Exam Provider Initial Ultrasound Date Last Menstrual Period Date Ultra Sound Weeks Gestation 0 Eighteen To Twenty Week Jb Update Ultra Sound Date Fundal Height At Umbil Quickening Date Ultra Sound Latest Weeks Gestation Final Jb Confirmed By Final Jb Confirmed Date Final Jb Date Ultra Sound Latest Days Gestation 0 0 Menstrual History Last Menstrual Date Menses Monthly On Bcp Conception Prior Menses Frequency Hcg Plus Date Menarche Onset Age Delivery Information Delivery Date Delivery Type Labor Anesthesia Weeks Gestation Incision Type Labor Labor Length Hrs Delivered By Post Complications Tubal Sterilization Discharge Date Comments 2 Discharge Information Feeding Method Contraceptive Method Maternal HG B and HCT Levels
--- OUTSIDE RECORDS SUMMARY | 2024-08-18 08:29 | XMS_ITS | Clinical Summary ---
Author Organization [facility] [employer] Address [address] [place] [address] Care Team Providers Care Steam Setter Name Role Phone Espinoza Li MD Primary Care Provider Source Comments [facility],non-owned Affiliates and Associated Physician Practices is amultiple site organization consisting of ambulatory clinics and hospital sitesin [place], [place], [place] and [place]. This disclosure is being madepursuant to the Care Everywhere program and may not contain all information available regarding this patient. Last updated 18.[facility] [employer] Social History Tobacco Use Types Packs/Day Years Used Date Smoking Tobacco: Never Assessed Sex and Gender Information Value Date Recorded Sex Assigned at Not on file Gender Identity Not on file Sexual Orientation Not on file Plan of Treatment Health Maintenance Due Date Last Done Comments BONE DENSITY TESTING 1955 COLOGUARD (AGES 45-75) - COL ON CA SCREENING 1955 COLON MONITORING 1955 COLONOSCOPY - COLON CA SCREENING 1955 CT COLONOGRAPHY - COLON CA SCREENING 1955 Colorectal Cancer Screening 1955 FIT - COLON CA SCREENING 1955 FLEX SIG - COLON CA SCREENING 1955 LIPID TESTING 1955 MEDICARE AWV 12 MONTHS 1955 HEPATITIS C SCREENING 02/12/1975 DTAP/TDAP/TD VACCINES (1 - Tdap) 02/17/1976 PNEUMOCOCCAL VACCINE 50+ (1 of 1 - PCV) 2007 ZOSTER VACCINE (1 of 2) 2007 MAMMOGRAM 08/15/2020 08/15/2018, 08/15/2018 COVID-19 VACCINE ( - 2023-2 5 season) 2024 INFLUENZA VACCINE (#1) 2024 DEPRESSION SCREENING 06/03/2024 Respiratory Syncytial Virus (RSV) Vaccine Pt: or over 60 yrs (1 - 1-dose 75+ series) 02/17/2032 HEPATITIS B VACCINE Aged Out No longe r eligible based on patient's age to complete this topic HIB VACCINE Aged Out No longer eligi ble based on patient's age to complete this topic HPV VACCINE Aged Out No longer eligi ble based on patient's age to complete this topic MENINGOCOCCAL (Group B) VACCINE SHARED DECISION-MAKING Aged Out No longer eligible based on patient's age to complete this topic MENINGOCOCCAL GROUPS A/C/Y/W VACCINE Aged Out No longer eligible b ased on patient's age to complete this topic Care Teams Steam Setter Relationship Specialty Start Date End Date Espinoza Li MD [address] [address] PCP - General Internal Medicine 1/1/19
--- OUTSIDE RECORDS SUMMARY | 2024-08-18 08:29 | XMS_ITS | Encounter Summary ---
Author Organization [facility] Address [address] [place] [address] Care Team Providers Care Excel Vba Developer Name Role Phone Espinoza Li MD Primary Care Provider [phone] Encounter Details Date Type Department Care Team (Latest Contact Info) Description 04/14/2007 Outpatient Historical HIS [facility] Chase John MD [address] [facility] [address] [place] [address] Other Screening Mammogram (Primary Dx) Social History Tobacco Use Types Packs/Day Years Used Date Smoking Tobacco: Never Assessed Comments Unknown Sex and Gender Information Value Date Recorded Sex Assigned at Not on file 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 Gender Identity Not on file Sexual Orientation Not on file documented as of this encounter Plan of Treatment Upcoming Encounters Date Type Department Care Team (Late st Contact Info) Description 08/25/2024 11:45 AM CDT Office Visit [facility] Oncology and Hematology - Kristian [address] [facility] [address] [place] [address] Carmine Barrientos MD [address] [facility] [address] [place] [address] documented as of this encounter Visit Diagnoses Diagnosis Other screening mammogram- Primary documented in this encounter Care Teams Excel Vba Developer Relationship Specialty Start Date End Date Espinoza Li MD [address] [facility] 4 [place] [address] PCP - General Internal Medicine 08/27/18 documented as of this encounter
[2024-08-18 12:38] LABS: Alanine Aminotransferase 31 U/L (6-35); Albumin Level 4.1 g/dL (3.5-5.1); Alkaline Phosphatase 47 U/L (38-126); Anion Gap 10 mmol/L (4-12); Aspartate Amino Transferase 31 U/L (14-36); Bilirubin,Total 0.5 mg/dL (0.2-1.3); Blood Urea Nitrogen 20 mg/dL (7-17); Calcium 9.6 mg/dL (8.4-10.2); Carbon Dioxide 27 mmol/L (22-30); Chloride 103 mmol/L (98-107); Estimated Glomerular Filt Rate > 60; Glucose 101 mg/dL (65-110); Potassium 3.8 mmol/L (3.4-5.0); Sodium 140 mmol/L (137-145)
[2024-08-19 05:58] LABS: CA 15-3 10 U/mL (<32)
== END 2024-08-18 08:16 | disposition home or self-care (01) ==
LOC: ANHLAB 08:17
PROVIDERS: PCP Internal Medicine; Visit Provider Internal Medicine Hematology & Oncology
DX: C50.112 Malignant neoplasm of central portion of left female breast (principal); Z17.0 Estrogen receptor positive status [ER+]
CPT/HCPCS: 36415; 80053; 85025; 86300

== ENCOUNTER 2024-11-10 10:44 | Outpatient (CLI) | payer MEDICARE, OTHER, SELFPAY ==
--- NOTE | ~2024-11-10 | DEXA_ITS ---
Bone Density Report Name: ALLY HACKETT Age: 69 Sex: Female Ethnicity: White Date of : 1955 Indication: osteopenia; Referring Provider: MARIA TERESA, MICHAEL Stroud Study: Bone densitometry was performed. Exam Date: November 10, 2024 Accession number: [id number] Bone Density: Region BMD T-score Z-score Classification AP Spine(L1-L4) 0.936 -1.0 0.9 Normal Femoral Neck (Left) 0.747 -0.9 0.7 Normal Total Hip (Left) 0.831 -0.9 0.5 Normal Femoral Neck (Right) 0.772 -0.7 1.0 Normal Total Hip (Right) 0.837 -0.9 0.5 Normal Total Hip Mean 0.834 -0.9 0.5 Normal World Health Organization criteria for BMD impression classify patients as: Normal (T-score at or above -1.0), Osteopenia (T-score between -1.0 and -2.5), or Osteoporosis (T-score at or below -2.5). 10-year Fracture Risk: FRAX not reported because: All T-scores for Spine Total, Hip Total, Femoral Neck at or above -1.0 Previous Exams: -- Region Exam Age BMD T-score BMD Change BMD Change Date g/cm2 vs Baseline vs Previous -- AP Spine (L1-L4) 11/10/2024 69 0.936 -1.0 -12.1%* 0.2% 06/05/2022 67 0.934 -1.0 -12.3%* -3.2%* 01/22/2020 64 0.964 -0.8 -9.4%* -4.4%* 01/08/2014 58 1.009 -0.3 -5.2%* -4.1%* 04/24/2010 55 1.053 0.1 -1.1% -1.1% 02/04/2008 52 1.064 0.2 Total Hip(Left) 11/10/2024 69 0.831 -0.9 -16.9%* 1.2% 06/05/2022 67 0.821 -1.0 -17.9%* -3.4%* 01/22/2020 64 0.850 -0.8 -15.0%* -5.3%* 01/08/2014 58 0.897 -0.4 -10.2%* -2.3% 04/24/2010 55 0.918 -0.2 -8.1%* -8.1%* 02/04/2008 52 1.000 0.5 Total Hip(Right) 11/10/2024 69 0.837 -0.9 -9.6%* 5.0%* 06/05/2022 67 0.797 -1.2 -13.9%* 0.2% 01/22/2020 64 0.796 -1.2 -14.1%* -5.8%* 01/08/2014 58 0.844 -0.8 -8.8%* -3.9%* 04/24/2010 55 0.879 -0.5 -5.1%* -5.1%* 02/04/2008 52 0.926 -0.1 -- *Denotes significance at 95% confidence level, LSC for AP Spine = 0.022 g/cm2, LSC for Total Hip = 0.027 g/cm2 Clinical Information Provided by Patient: Has used the following medications: Vitamin D, Calcium Patient maximum height was 65 Menopause Age: 52 Drinks caffeinated beverages Onset of menses at age 16 Number of children 2 Impression: The patient has normal bone mass. No significant bone loss was observed. Discussion: BONE DENSITY IS ABOVE THE MINIMUM DESIRABLE LEVEL AT ALL SKELETAL SITES TESTED. This patient?s bone mineral density is above the minimum desirable level (T-score -1.0 or better) at all sites measured. The patient should follow a healthful lifestyle (good nutrition with adequate calcium and vitamin D, and appropriate weight-bearing exercise). Follow-Up: Consider repeating this study in 5 years or sooner if there is some new clinical indication. Reported by: ARIELLE on 11/10/2024 11:07:00 AM. Reviewed, dictated and finalized at location A.
== END 2024-11-10 10:45 | disposition home or self-care (01) ==
LOC: MICIMG 10:45
PROVIDERS: PCP Internal Medicine; Visit Provider Internal Medicine
DX: M81.0 Age-related osteoporosis without current pathological fracture (principal)
CPT/HCPCS: 77080

== ENCOUNTER 2025-02-22 13:52 | Outpatient (CLI) | payer MEDICARE, OTHER, SELFPAY ==
--- OUTSIDE RECORDS SUMMARY | 2008-12-13 08:15 | XMS_ITS | Continuity of Care Document ---
Author Organization [facility] Address [address] [place] [address] [place] [address] Phone Care Team Providers Care Equipment Installer Name Role Phone Fer Charles Unavailable Unavailable Procedures Procedure Date Eye Exam, New Patient Ophthalmoscopy Advance Directives Directive Yes / No Effective Date File Name No Information Encounters Encounter Description Practice Location Reason(s) For Visit Diagnoses Date Provider Providers [facility] on [facility] [address] [place] [address] [address], [place], [place], [id number], tel:[phone] [facility] No Information Melvin Monroe. [address] [place] [address], [facility], . tel:[phone] Referring Provider: Fer Khalil, [address] [place], [place], [facility]. tel:[phone] Family History Family Member Type Diagnosis Age At Onset No Information Payers Payer name Insurance type Covered alliance party ID Authoriza tion(s) [facility] CI [id number] Social History Type Description Quantity Date Captured Comments Sex Female Smoking Status No Information Chief Complaint And Reason For Visit No Information Reason For Referral Reason For Referral No Information History Of Present Illness Encounter Date Complaint History Of Prese nt Illness No Information Functional Status Date Functional Assessmen t No Information Instructions Date Instruction Additional Infor mation No Information Assessments Type Assessment Date No Information Patient Care Teams Name Effective Dates (start - stop) Status Members No Information
--- NOTE | ~2025-02-22 | MM_ITS ---
EXAMINATION: MM screening jim BI w olivia HISTORY: Screening TECHNIQUE: Craniocaudal and mediolateral oblique 3-D tomosynthesis images were obtained and synthetic 2-D images were generated. CAD analysis was submitted and interpreted. COMPARISON: 12/24/2022 BREAST PARENCHYMAL COMPOSITION: There are scattered areas of fibroglandular density. FINDINGS: There is no evidence of suspicious mass, calcification, or architectural distortion to suggest malignancy. There has been no suspicious interval change. IMPRESSION: 1. No mammographic evidence of malignancy. Recommend routine screening mammography in one year. BI-RADS Category 2: Benign finding(s) Reviewed, dictated and finalized at location Q. IMPRESSION: 1. No mammographic evidence of malignancy. Recommend routine screening mammogra phy in one year. BI-RADS Category 2: Benign finding(s)
--- OUTSIDE RECORDS SUMMARY | 2025-02-22 14:15 | XMS_ITS | Encounter Summary ---
Author Organization [facility] Address [address] [place] [address] Care Team Providers Care Model And Pattern Supervisor Name Role Phone Espinoza Li MD Primary Care Provider [phone] Encounter Details Date Type Department Care Team (Latest Contact Info) Description 04/08/2000 Outpatient Historical HIS [facility] Chase Durant MD [address] [facility] [address] [place] [address] Other screening mammogram (Primary Dx) Social History Tobacco Use Types Packs/Day Years Used Date Smoking Tobacco: Never Assessed Comments Unknown Sex and Gender Information Value Date Recorded Sex Assigned at Not on file 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 Gender Identity Not on file Sexual Orientation Not on file documented as of this encounter Plan of Treatment Upcoming Encounters Date Type Department Care Team (Late st Contact Info) Description 03/02/2025 11:00 AM CDT Office Visit [facility] Oncology and Hematology - Kristian [address] [facility] [address] [place] [address] Carmine Barrientos MD [address] [facility] [address] [place] [address] documented as of this encounter Visit Diagnoses Diagnosis Other screening mammogram- Primary documented in this encounter Care Teams Model And Pattern Supervisor Relationship Specialty Start Date End Date Espinoza Li MD [address] [facility] 4 [place] [address] PCP - General Internal Medicine 08/27/18 documented as of this encounter
--- OUTSIDE RECORDS SUMMARY | 2025-02-22 14:15 | XMS_ITS | Encounter Summary ---
Author Organization [facility] Address [address] [place] [address] Care Team Providers Care Logistics Project Manager Name Role Phone Espinoza Li MD Primary Care Provider [phone] Encounter Details Date Type Department Care Team (Latest Contact Info) Description 04/23/2005 Outpatient Historical HIS IM[facility] Chase John MD [address] [facility] [address] [place] [address] SCREENING MAMM-MAILG NEOPL NEC (Primary Dx) Social History Tobacco Use Types Packs/Day Years Used Date Smoking Tobacco: Never Assessed Comments Unknown Sex and Gender Information Value Date Recorded Sex Assigned at Not on file 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 Gender Identity Not on file Sexual Orientation Not on file documented as of this encounter Plan of Treatment Upcoming Encounters Date Type Department Care Team (Late st Contact Info) Description 03/02/2025 11:00 AM CDT Office Visit [facility] Oncology and Hematology - Kristian [address] [facility] [address] [place] [phone] Carmine Barrientos MD [address] [facility] [address] [place] [address] documented as of this encounter Visit Diagnoses Diagnosis Other screening mammogram- Primary documented in this encounter Care Teams Logistics Project Manager Relationship Specialty Start Date End Date Espinoza Li MD [address] [facility] [address] [place] [phone] (work) PCP - General Internal Medicine 08/27/18 documented as of this encounter
--- OUTSIDE RECORDS SUMMARY | 2025-02-22 14:15 | XMS_ITS | Encounter Summary ---
Author Organization [facility] Address [address] [place] [address] Care Team Providers Care Wall And Floor Tiler Name Role Phone Espinoza Li MD Primary Care Provider [phone] Encounter Details Date Type Department Care Team (Latest Contact Info) Description 04/27/2002 Outpatient Historical HIS IMG[facility]LAB [facility] Chase John MD [address] [facility] [address] [place] [address] SCREENING MAMM-MAILG NEOPL-OTHER (Primary Dx) Social History Tobacco Use Types Packs/Day Years Used Date Smoking Tobacco: Never Assessed Comments Unknown Sex and Gender Information Value Date Recorded Sex Assigned at Not on file 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 Gender Identity Not on file Sexual Orientation Not on file documented as of this encounter Plan of Treatment Upcoming Encounters Date Type Department Care Team (Late st Contact Info) Description 03/02/2025 11:00 AM CDT Office Visit [facility] Oncology and Hematology - Kristian [address] [facility] [address] [place] [phone] Carmine Barrientos MD [address] [facility] [address] [place] [address] documented as of this encounter Visit Diagnoses Diagnosis Other screening mammogram- Primary documented in this encounter Care Teams Wall And Floor Tiler Relationship Specialty Start Date End Date Espinoza Li MD [address] [facility] 4 [place] [phone] PCP - General Internal Medicine 08/27/18 documented as of this encounter
--- OUTSIDE RECORDS SUMMARY | 2025-02-22 14:15 | XMS_ITS | Encounter Summary ---
Author Organization [facility] Address [address] [place] [address] Care Team Providers Care Utility Worker Production Name Role Phone Espinoza Li MD Primary Care Provider [phone] Encounter Details Date Type Department Care Team (Latest Contact Info) Description 04/14/1998 Outpatient Historical HIS 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 Gender Identity Not on file Sexual Orientation Not on file documented as of this encounter Plan of Treatment Upcoming Encounters Date Type Department Care Team (Late st Contact Info) Description 03/02/2025 11:00 AM CDT Office Visit [facility] Oncology and Hematology - Kristian [address] [facility] [address] [place] [address] Carmine Barrientos MD [address] [facility] [address] [place] [address] documented as of this encounter Visit Diagnoses Diagnosis Other screening mammogram- Primary documented in this encounter Care Teams Utility Worker Production Relationship Specialty Start Date End Date Espinoza Li MD [address] [facility] 4 [place] [address] PCP - General Internal Medicine 08/27/18 documented as of this encounter
--- OUTSIDE RECORDS SUMMARY | 2025-02-22 14:15 | XMS_ITS | Encounter Summary ---
Author Organization [facility] Address [address] [place] [address] Care Team Providers Care Email Marketing Processor Name Role Phone Espinoza Li MD Primary Care Provider [phone] Encounter Details Date Type Department Care Team (Latest Contact Info) Description 04/28/1999 Outpatient Historical HIS [facility] Chase Durant MD [address] [facility] [address] [place] [address] Other screening mammogram (Primary Dx) Social History Tobacco Use Types Packs/Day Years Used Date Smoking Tobacco: Never Assessed Comments Unknown Sex and Gender Information Value Date Recorded Sex Assigned at Not on file 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 Gender Identity Not on file Sexual Orientation Not on file documented as of this encounter Plan of Treatment Upcoming Encounters Date Type Department Care Team (Late st Contact Info) Description 03/02/2025 11:00 AM CDT Office Visit [facility] Oncology and Hematology - Kristian [address] [facility] [address] [place] [address] Carmine Barrientos MD [address] [facility] [address] [place] [address] documented as of this encounter Visit Diagnoses Diagnosis Other screening mammogram- Primary documented in this encounter Care Teams Email Marketing Processor Relationship Specialty Start Date End Date Espinoza Li MD [address] [facility] 4 [place] [address] PCP - General Internal Medicine 08/27/18 documented as of this encounter
--- OUTSIDE RECORDS SUMMARY | 2025-02-22 14:15 | XMS_ITS | Encounter Summary ---
Author Organization [facility] Address [address] [place] [address] Care Team Providers Care Education Site Manager Name Role Phone Espinoza Li MD Primary Care Provider [phone] Encounter Details Date Type Department Care Team (Latest Contact Info) Description 04/09/2006 Outpatient Historical HIS IM[facility]LAB [facility] Chase John MD [address] 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 Gender Identity Not on file Sexual Orientation Not on file documented as of this encounter Plan of Treatment Upcoming Encounters Date Type Department Care Team (Late st Contact Info) Description 03/02/2025 11:00 AM CDT Office Visit [facility] Oncology and Hematology - Kristian [address] [facility] [address] [place] [address] Carmine Barrientos MD [address] [facility] [address] [place] [address] documented as of this encounter Visit Diagnoses Diagnosis Other screening mammogram- Primary documented in this encounter Care Teams Education Site Manager Relationship Specialty Start Date End Date Espinoza Li MD [address] [facility] 4 [place] [address] PCP - General Internal Medicine 08/27/18 documented as of this encounter
--- OUTSIDE RECORDS SUMMARY | 2025-02-22 14:15 | XMS_ITS | Encounter Summary ---
Author Organization [facility] Address [address] [place] [address] Care Team Providers Care Seed Mill Superintendent Name Role Phone Espinoza Li MD Primary Care Provider [phone] Encounter Details Date Type Department Care Team (Latest Contact Info) Description 04/29/2001 Outpatient Historical HIS IM[facility]LAB [facility] Chase John MD [address] [facility] [address] [place] [address] SCREENING MAMM-MAILG NEOPL-OTHER (Primary Dx) Social History Tobacco Use Types Packs/Day Years Used Date Smoking Tobacco: Never Assessed Comments Unknown Sex and Gender Information Value Date Recorded Sex Assigned at Not on file 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 [address] [place] [phone] Carmine Barrientos MD [address] [facility] [address] [place] [address] documented as of this encounter Visit Diagnoses Diagnosis Other screening mammogram- Primary documented in this encounter Care Teams Seed Mill Superintendent Relationship Specialty Start Date End Date Espinoza Li MD [address] [facility] 4 [place] [phone] PCP - General Internal Medicine 08/27/18 documented as of this encounter
--- OUTSIDE RECORDS SUMMARY | 2025-02-22 14:15 | XMS_ITS | Encounter Summary ---
Author Organization [facility] Address 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 [address] [place] [address] documented as of this encounter Visit Diagnoses Diagnosis Leiomyoma of uterus, unspecified- Primary documented in this encounter Care Teams Music Artist Relationship Specialty Start Date End Date Espinoza Li MD [address] [facility] 4 [place] [address] PCP - General Internal Medicine 08/27/18 documented as of this encounter
--- OUTSIDE RECORDS SUMMARY | 2025-02-22 14:15 | XMS_ITS | Encounter Summary ---
Author Organization [facility] Address [address] [place] [address] Care Team Providers Care Outside Repairer Special Name Role Phone Espinoza Li MD Primary Care Provider [phone] Encounter Details Date Type Department Care Team (Latest Contact Info) Description 04/24/2004 Outpatient Historical HIS IMG-LAB [facility] Chase John MD [address] [facility] [address] [place] [address] SCREENING MAMM-MAILG NEOPL-OTHER (Primary Dx) Social History Tobacco Use Types Packs/Day Years Used Date Smoking Tobacco: Never Assessed Comments Unknown Sex and Gender Information Value Date Recorded Sex Assigned at Not on file 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 Gender Identity Not on file Sexual Orientation Not on file documented as of this encounter Plan of Treatment Upcoming Encounters Date Type Department Care Team (Late st Contact Info) Description 03/02/2025 11:00 AM CDT Office Visit [facility] Oncology and Hematology - Kristian [address] [facility] [address] [place] [phone] Carmine Barrientos MD [address] [facility] [address] [place] [address] documented as of this encounter Visit Diagnoses Diagnosis Other screening mammogram- Primary documented in this encounter Care Teams Outside Repairer Special Relationship Specialty Start Date End Date Espinoza Li MD 3908 [facility] 4 [place] [phone] PCP - General Internal Medicine 08/27/18 documented as of this encounter
--- OUTSIDE RECORDS SUMMARY | 2025-02-22 14:15 | XMS_ITS | Encounter Summary ---
Author Organization [facility] Address [address] [place] [address] Care Team Providers Care Aluminum Molder Name Role Phone Espinoza Li MD Primary Care Provider [phone] Encounter Details Date Type Department Care Team (Late Contact Info) Description 12/18/2018 Chart Note [facility] Radiation Therapy [address] [place] [address] [place] [address] [place] [address] Social History Tobacco Use Types Packs/Day Years Used Date Smoking Tobacco: Never Smokeless Tobacco: Never Alcohol Use Standard Drinks/Week Comments No 0 (1 standard drink = 0.6 oz pur e alcohol) Comments No Sex and Gender Information Value Date Recorded Sex Assigned at Not on file 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 Gender Identity Not on file Sexual Orientation Not on file documented as of this encounter Plan of Treatment Upcoming Encounters Date Type Department Care Team (Late st Contact Info) Description 03/02/2025 11:00 AM CDT Office Visit [facility] Oncology and Hematology - Kristian [address] [facility] 200 [place] [address] Carmine Barrientos MD 2227 [facility] [address] [place] [address] documented as of this encounter Visit Diagnoses Not on filedocumented in this encounter Care Teams Aluminum Molder Relationship Specialty Start Date End Date Espinoza Li MD [address] [address] PCP - General Internal Medicine 08/27/18 documented as of this encounter
--- OUTSIDE RECORDS SUMMARY | 2025-02-22 14:15 | XMS_ITS | Encounter Summary ---
Author Organization [facility] Address [address] [place] [address] Care Team Providers Care Certified Nursing Attendant Name Role Phone Espinoza Li MD Primary Care Provider [phone] Encounter Details Date Type Department Care Team (Latest Contact Info) Description 04/14/2007 Outpatient Historical HIS IMG[facility]LAB [facility] Chase John MD [address] 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 Gender Identity Not on file Sexual Orientation Not on file documented as of this encounter Plan of Treatment Upcoming Encounters Date Type Department Care Team (Late st Contact Info) Description 03/02/2025 11:00 AM CDT Office Visit [facility] Oncology and Hematology - Kristian [address] [facility] [address] [place] [address] Carmine Barrientos MD 2[address] [facility] [address] [place] [address] documented as of this encounter Visit Diagnoses Diagnosis Other screening mammogram- Primary documented in this encounter Care Teams Certified Nursing Attendant Relationship Specialty Start Date End Date Espinoza Li MD 3[address] [facility] 4 [place] [address] PCP - General Internal Medicine 08/27/18 documented as of this encounter
--- OUTSIDE RECORDS SUMMARY | 2025-02-22 14:15 | XMS_ITS | Encounter Summary ---
Author Organization [facility] Address [address] [place] [address] Care Team Providers Care Welder Manufacture Name Role Phone Espinoza Li MD Primary Care Provider [phone] Encounter Details Date Type Department Care Team (Latest Contact Info) Description 04/16/2008 Outpatient Historical HIS IMG-LAB [facility], History Other Screening Mammogram Social History Tobacco Use Types Packs/Day Years Used Date Smoking Tobacco: Never Assessed Comments Unknown Sex and Gender Information Value Date Recorded Sex Assigned at Not on file Legal Sex Female 5:17 AM MEDIA INTERN Gender Identity Not on file Sexual Orientation Not on file documented as of this encounter Plan of Treatment Upcoming Encounters Date Type Department Care Team (Late st Contact Info) Description 03/02/2025 11:00 AM CDT [facility] On[facility] Hematology - Kristian [address] [facility] 200 [place] [address] Carmine Barrientos MD [address] [facility] [address] [place] [address] documented as of this encounter Procedures Procedure Name Priority Date/Time Associated Diagnosis Comments MAMMO SCREEN BILAT W OR WO CAD Routine 04/16/2008 4:16 PM MEDIA INTERN documented in this encounter Results * MAMMO DIGITAL SCREEN BILAT (04/16/2008 4:16 PM MEDIA INTERN) Anatomical Region Laterality Modality Breast Bilateral Other 04/16/2008 4:16 PM MEDIA INTERN Narrative 04/26/2008 2:59 PM MEDIA INTERN [address] [address] [place], [place] [address] Admit Date: 04/16/2008 ALLY HACKETT Sex: F Admit Prov: DOCTOR, NOT O Date: 1955 Primary Care Prov: CMRN: [id number] [facility] [address] [place] [address] IMAGING SERVICES Ordering Prov: DOCTOR, NOT O Accession Number: [id number] Interpretation DIGITAL SCREENING MAMMOGRAM WITH COMPUTER-ASSISTED DIAGNOSIS [...] CXZ Procedure Note Marybel Garcia - 04/26/[address] [address] Admit Date: 04/16/2008 ALLY HACKETT Sex: F Admit Prov: DOCTOR, NOT O Date: 1955 Primary Care Prov: CMRN: [id number] [facility] [address] [place] [address] IMAGING SERVICES Ordering Prov: DOCTOR, NOT O [...] mammogram documented in this encounter Care Teams Welder Manufacture Relationship Specialty Start Date End Date Espinoza Li MD [address] [address] PCP - General Internal Medicine 08/27/18 documented as of this encounter
--- OUTSIDE RECORDS SUMMARY | 2025-02-22 14:15 | XMS_ITS | Clinical Summary ---
Author Organization [facility] Address [address] [place] [address] Care Team Providers Care Ctrs Name Role Phone Espinoza Li MD Primary Care Provider [phone] Source Comments [facility],non-owned Affiliates and Associated Physician Practices is amultiple site organization consisting of ambulatory clinics and hospital sitesin [place], [place], [place] and [place]. This disclosure is being madepursuant to the Care Everywhere program and may not contain all information available regarding this patient. Last updated 18.[facility] Social History Tobacco Use Types Packs/Day Years Used Date Smoking Tobacco: Never Assessed Comments Unknown Sex and Gender Information Value Date Recorded Sex Assigned at Not on file Legal Sex Female 5:29 PM CARE PARTNER Gender Identity Not on file Sexual Orientation [...] (1 of 2) 2007 MAMMOGRAM 08/15/2020 08/15/2018, 08/15/2018, 08/12/2018 DEPRESSION SCREENING 06/03/2024 COVID-19 VACCINE (1 2023-2 5 season) 2025 INFLUENZA VACCINE (#1) 2025 Respiratory Syncytial Virus (RSV) Vaccine Pt: or [...] on patient's age to complete this topic Insurance [id number] [place] [address] MEDICARE [facility] Care Teams Ctrs Relationship Specialty Start Date End Date Espinoza Li MD [address] [address] PCP - General Internal Medicine 06/03/18
--- OUTSIDE RECORDS SUMMARY | 2025-02-22 14:15 | XMS_ITS | Clinical Summary ---
Author Organization [facility] Address [address] [place] [address] Care Team Providers Care Personalized Living Assistant Name Role Phone Espinoza Li MD Primary Care Provider [phone] Allergies Active Allergy Reactions Criticality Noted Date Comments Betadine Surgi-Prep Rash High 08/27/2018 Iodine Hives High 02/19/2019 Latex Anaphylaxis High 08/27/2018 Penicillins Rash Low 08/27/2018 Medications multivitamin/ir on/folic acid (CENTRUM WOMEN ORAL) Take by mouth daily. Active ergocalciferol, vitamin D2, (VITAMIN D ORAL) Take 1,000 mg by mouth daily . Active betamethasone dipropionate (DIPROSONE) 0.05 % Lotion 5 019 Active naproxen (NAPROSYN) 500 mg tablet 0 019 Active amLODIPine (NORVASC) 5 mg tablet amlodipine [...] tablet potassium chloride ER 20 mEq tablet,extended release(part/cry st) Active triamterene-hyd roCHLOROthiazid e (MAXZIDE) 75-50 mg tablet triamterene 75 mg-hydrochloroth iazide 50 mg tablet TK SS T PO [...] 18-400 mg-mcg Tablet Centrum Women Ac tive Cholecalciferol , Vitamin D3, (Vitamin D3) 10 mcg (400 unit) capsule Vitamin D3 020 Active vit B cmplx 3-FA-Vit C-Biotin (RENAVITE-RX RX) 1-60-300 mg-mg-mcg Tablet Take 1 Tablet by mouth daily. Active tamoxifen (NOLVADEX) 20 mg tablet TAKE 1 TABLET BY MOUTH EVERY DAY 90 Tablet 3 025 Active tamoxifen (NOLVADEX) 20 mg tablet take 1 tablet by mouth every day 90 Tablet 3 024 2024 Discontinued Active Problems Problem Noted Date Diagnosed Date [...] Encounters Date Type Department Care Team Description 2025 External Device Data STL ABSTRACTION Provider, Abstract 02/02/2025 External Device Data STL ABSTRACTION Provider, Abstract 01/29/2025 [facility] Oncology and Hematology - Kristian [address] [place] [address] Carmine Barrientos MD 01/12/2025 External Device Data STL ABSTRACTION Provider, Abstract 12/16/2024 External Device Data STL ABSTRACTION Provider, Abstract 12/16/2024 External Device Data STL ABSTRACTION Provider, Abstract from Last 3 Months Immunizations Immunization Administration Dates Next Due (PFIZER)(12 YR UP) COVID-19 VACCINE - EMERGENCY USE AUTHORIZATION, MRNA, [id number]) 30 MCG/0.3 ML IM SUSP 09/09/2020,08/19/2020 Family [...] on file 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 Gender Identity Not on file Sexual Orientation Not on file Last Filed Vital Signs Vital Sign Reading Time Taken Comments Blood Pressure 110/70 08/25/2024 11:34 AM CDT Pulse 57 08/25/2024 11:34 AM CDT Temperature 36.3 C (97.4 F) 08/25/2024 11:34 AM CDT Respiratory Rate 16 08/25/2024 11:34 AM CDT Oxygen Saturation 96% 08/25/2024 11:34 AM CDT Inhaled Oxygen Concentration - - Weight 81.7 kg (180 lb 3.2 oz) 08/25/2024 11:34 AM CDT Height 165.1 cm (5' 5) 08/17/2021 11:28 AM CDT Body Mass Index 29.99 08/17/2021 11:28 AM CDT Plan of Treatment Upcoming Encounters Date Type Department Care Team (Late st Contact Info) Description 03/02/2025 11:00 AM CDT Office Visit [facility] Oncology and Hematology - Kristian [address] [facility] [address] [place] [address] Carmine Barrientos MD [address] [facility] [address] [place] [address] Health Maintenance Due Date Last Done Comments Pre-Diabetes and Diabetes Screening 1955 DTAP/TDAP/TD VACCINES (1 - Tdap) 02/17/1976 FIT-DNA Q 3 years 2002 FIT/FOBT Q 1 year 2002 Flex Sig/CT Colonography Q 5 years 2002 PNEUMOCOCCAL VACCINE 50+ YEA RS (1 of 1 - PCV) 2007 ZOSTER VACCINE (1 of 2) 2007 INFLUENZA VACCINE (#1) 2025 BREAST CANCER SCREENING 01/21/2025 01/22/20 24, 01/22/2024, 01/22/2024, Additional history exists COVID-19 Vaccine (3 - 2024-2 6 season) 2025 09/09/2020, 08/19/2020 OSTEOPOROSIS SCREENING 11/10/2029 11/10/2024, 2019 COLORECTAL SCREENING 09/26/2030 09/26/2020 Colorectal Cancer Screening 09/26/2030 RSV VACCINE (60+ or ) (1 - 1-dose 75+ series) 02/17/2032 Procedures Procedure Name Priority Date/Time Associated Diagnosis [...] Laterality Modality Other Christine CARRERO DIAGNOSTIC IMAGING ORDERABLES Final Result from Last 3 Months or Most Recently Relevant to Health Maintenance Insurance [facility]ICARE [facility] Care Teams Personalized Living Assistant Relationship Specialty Start Date End Date Espinoza Li MD 3[address] [facility] 4 [place] [address] PCP - General Internal Medicine 08/27/18
--- OUTSIDE RECORDS SUMMARY | 2025-02-22 14:15 | XMS_ITS | Encounter Summary ---
Author Organization [facility] Address [address] [place] [address] Care Team Providers Care Wood Cutter Name Role Phone Espinoza Li MD Primary Care Provider [phone] Encounter Details Date Type Department Care Team (Latest Contact Info) Description 04/28/2003 Outpatient Historical HIS IMG-LAB [facility] Chase John MD [address] [facility] [address] [place] [address] SCREENING MAMM-MAILG NEOPL-OTHER (Primary Dx) Social History Tobacco Use Types Packs/Day Years Used Date Smoking Tobacco: Never Assessed Comments Unknown Sex and Gender Information Value Date Recorded Sex Assigned at Not on file 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 Female 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 Gender Identity Not on file Sexual Orientation Not on file documented as of this encounter Plan of Treatment Upcoming Encounters Date Type Department Care Team (Late st Contact Info) Description 03/02/2025 11:00 AM CDT Office Visit [facility] Oncology and Hematology - Kristian 2[address] [facility] [address] [place] [phone] Carmine Barrientos MD [address] [facility] [address] [place] [address] documented as of this encounter Visit Diagnoses Diagnosis Other screening mammogram- Primary documented in this encounter Care Teams Wood Cutter Relationship Specialty Start Date End Date Espinoza Li MD 3908 [facility] 4 [place] [phone] PCP - General Internal Medicine 08/27/18 documented as of this encounter
== END 2025-02-22 13:53 | disposition home or self-care (01) ==
LOC: ANHFOHIMG 13:54
PROVIDERS: PCP Internal Medicine; Visit Provider Internal Medicine Hematology & Oncology
DX: Z12.31 Encounter for screening mammogram for malignant neoplasm of breast (principal)
CPT/HCPCS: 77063; 77067

== ENCOUNTER 2025-02-22 14:19 | Outpatient (CLI) | payer MEDICARE, OTHER, SELFPAY ==
[2025-02-22 14:33] LABS: Hematocrit 38.4 % (37.0-47.0); Hemoglobin 12.6 g/dL (12.0-15.0); Immature Granulocyte Percent A 0.3 % (0-0.5); Lymphocytes Absolute Auto 3.03 K/mm3 (0.9-3.2); Mean Corpuscular HGB Conc 32.8 g/dl (32-36); Mean Corpuscular Hemoglobin 30.3 pg (26-34); Mean Corpuscular Volume 92.3 fl (80-100); Nucleated Red Blood Cells Absolute Auto 0.000 K/mm3 (0.0-0.012); Nucleated Red Blood Cells Perc 0.0 % (0.0-0.2); Platelet Count Result 219 k/mm3 (150-375); Red Blood Count 4.16 M/mm3 (4.2-5.4); White Blood Count 6.9 K/mm3 (4.5-10.0)
--- OUTSIDE RECORDS SUMMARY | 2025-02-22 14:36 | XMS_ITS | Encounter Summary ---
Author Organization [facility] Address [address] [place] [address] Care Team Providers Care Luggage Maker Name Role Phone Espinoza Li MD Primary Care Provider [phone] Encounter Details Date Type Department Care Team (Latest Contact Info) Description 04/09/2006 Outpatient Historical HIS IMG-LAB [facility] Chase John MD [address] [facility] [address] [place] [address] Other Screening Mammogram (Primary Dx) Social History Tobacco Use Types Packs/Day Years Used Date Smoking Tobacco: Never Assessed Comments Unknown Sex and Gender Information Value Date Recorded Sex Assigned at Not on file 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 Oncology and Hematology - Kristian 2[address] [email or web address] [address] [place] [address] Carmine Barrientos MD [address] [facility] [address] [place] [address] documented as of this encounter Visit Diagnoses Diagnosis Other screening mammogram- Primary documented in this encounter Care Teams Luggage Maker Relationship Specialty Start Date End Date Espinoza Li MD 3[address] [facility] 4 [place] [address] PCP - General Internal Medicine 08/27/18 documented as of this encounter
--- OUTSIDE RECORDS SUMMARY | 2025-02-22 14:36 | XMS_ITS | Encounter Summary ---
Author Organization [facility] Address [address] [place] [address] Care Team Providers Care Racing Car Driver Name Role Phone Espinoza Li MD Primary Care Provider [phone] Encounter Details Date Type Department Care Team (Late st Contact Info) Description 10/29/2001 Outpatient Historical HIS [facility] Chase John MD [address] [facility] [address] [place] [address] UTERINE LEIOMYOMA NOS (Primary Dx) Social History Tobacco Use Types Packs/Day Years Used Date Smoking Tobacco: Never Assessed Comments Unknown Sex and Gender Information Value Date Recorded Sex Assigned at Not on file Legal Sex Female 5:17 AM CRANIOLOGIST Gender Identity Not on file Sexual Orientation Not on file documented as of this encounter Plan of Treatment Upcoming Encounters Date Type Department Care Team (Late st Contact Info) Description 03/02/2025 11:00 AM CDT Office Visit [facility] Oncology and Hematology - Kristian 2[address] [facility] 200 [place] [address] Carmine Barrientos MD 2[address] [facility] [address] [place] [address] documented as of this encounter Visit Diagnoses Diagnosis Leiomyoma of uterus, unspecified- Primary documented in this encounter Care Teams Racing Car Driver Relationship Specialty Start Date End Date Espinoza Li MD 3908 [facility] 4 [place] [address] PCP - General Internal Medicine 08/27/18 documented as of this encounter
--- OUTSIDE RECORDS SUMMARY | 2025-02-22 14:36 | XMS_ITS | Encounter Summary ---
Author Organization [facility] Address [address] [place] [address] Care Team Providers Care Raw Shellfish Preparer Name Role Phone Espinoza Li MD Primary Care Provider [phone] Encounter Details Date Type Department Care Team (Latest Contact Info) Description 04/08/2000 Outpatient Historical HIS [facility] Chase Durant MD [address] [facility] [address] [place] [address] Other screening mammogram (Primary Dx) Social History Tobacco Use Types Packs/Day Years Used Date Smoking Tobacco: Never Assessed Comments Unknown Sex and Gender Information Value Date Recorded Sex Assigned at Not on file 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 Female 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 LEAD 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 Gender Identity Not on file Sexual Orientation Not on file documented as of this encounter Plan of Treatment Upcoming Encounters Date Type Department Care Team (Late st Contact Info) Description 03/02/2025 11:00 AM CDT Office Visit [facility] Oncology and Hematology - Kristian [address] [facility] 200 [place] [address] Carmine Barrientos MD 2[address] [facility] [address] [place] [address] documented as of this encounter Visit Diagnoses Diagnosis Other screening mammogram- Primary documented in this encounter Care Teams Raw Shellfish Preparer Relationship Specialty Start Date End Date Espinoza Li MD 3908 [facility] 4 [place] [phone] PCP - General Internal Medicine 08/27/18 documented as of this encounter
--- OUTSIDE RECORDS SUMMARY | 2025-02-22 14:36 | XMS_ITS | Encounter Summary ---
Author Organization [facility] Address [address] [place] [address] Care Team Providers Care Chief Human Resources Officer Name Role Phone Espinoza Li MD Primary Care Provider [phone] Encounter Details Date Type Department Care Team (Latest Contact Info) Description 04/14/1998 Outpatient Historical HIS 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 Gender Identity Not on file Sexual Orientation Not on file documented as of this encounter Plan of Treatment Upcoming Encounters Date Type Department Care Team (Late st Contact Info) Description 03/02/2025 11:00 AM CDT Office Visit [facility] Oncology and Hematology - Kristian 2[address] [facility] [address] [place] [address] Carmine Barrientos MD 2227 [facility] [address] [place] [address] documented as of this encounter Visit Diagnoses Diagnosis Other screening mammogram- Primary documented in this encounter Care Teams Chief Human Resources Officer Relationship Specialty Start Date End Date Espinoza Li MD 3908 [facility] 4 [place] [address] PCP - General Internal Medicine 08/27/18 documented as of this encounter
--- OUTSIDE RECORDS SUMMARY | 2025-02-22 14:36 | XMS_ITS | Encounter Summary ---
Author Organization [facility] Address [address] [place] [address] Care Team Providers Care Manager Of Distribution Name Role Phone Espinoza Li MD Primary Care Provider Encounter Details Date Type Department Care Team (Latest Contact Info) Description 04/27/2002 Outpatient Historical HIS IMG-LAB [facility] Chase John MD [address] 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 Gender Identity Not on file Sexual Orientation Not on file documented as of this encounter Plan of Treatment Upcoming Encounters Date Type Department Care Team (Late st Contact Info) Description 03/02/2025 11:00 AM CDT Office Visit [facility] Oncology and Hematology - Kristian 2227 [facility] [address] [place] [phone] Carmine Barrientos MD 2[address] [facility] [address] [place] [address] documented as of this encounter Visit Diagnoses Diagnosis Other screening mammogram- Primary documented in this encounter Care Teams Manager Of Distribution Relationship Specialty Start Date End Date Espinoza Li MD 3908 [facility] 4 [place] [phone] PCP - General Internal Medicine 08/27/18 documented as of this encounter
--- OUTSIDE RECORDS SUMMARY | 2025-02-22 14:36 | XMS_ITS | Encounter Summary ---
Author Organization [facility] Address [address] [place] [address] Care Team Providers Care Hand Wrapper Operator Name Role Phone Espinoza Li MD Primary Care Provider [phone] Encounter Details Date Type Department Care Team (Latest Contact Info) Description 04/14/2007 Outpatient Historical HIS IMG-LAB [facility] Chase John MD [address] [facility] [address] [place] [address] Other Screening Mammogram (Primary Dx) Social History Tobacco Use Types Packs/Day Years Used Date Smoking Tobacco: Never Assessed Comments Unknown Sex and Gender Information Value Date Recorded Sex Assigned at Not on file 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 Gender Identity Not on file Sexual Orientation Not on file documented as of this encounter Plan of Treatment Upcoming Encounters Date Type Department Care Team (Late st Contact Info) Description 03/02/2025 11:00 AM CDT Office Visit [facility] Oncology and Hematology - Kristian [address] [facility] [address] [place] [address] Carmine Barrientos MD [address] [facility] [address] [place] [address] documented as of this encounter Visit Diagnoses Diagnosis Other screening mammogram- Primary documented in this encounter Care Teams Hand Wrapper Operator Relationship Specialty Start Date End Date Espinoza Li MD [address] [facility] 4 [place] [address] PCP - General Internal Medicine 08/27/18 documented as of this encounter
--- OUTSIDE RECORDS SUMMARY | 2025-02-22 14:36 | XMS_ITS | Encounter Summary ---
Author Organization [facility] Address [address] [place] [address] Care Team Providers Care Tool Hardener Name Role Phone Espinoza Li MD Primary Care Provider [phone] Encounter Details Date Type Department Care Team (Late Contact Info) Description 12/18/2018 Chart Note [facility] Radiation Therapy [address] [place] [address] [place] [address] [place] [address] Social History Tobacco Use Types Packs/Day Years Used Date Smoking Tobacco: Never Smokeless Tobacco: Never Alcohol Use Standard Drinks/Week Comments No 0 (1 standard drink = 0.6 oz pur e alcohol) Comments No Sex and Gender Information Value Date Recorded Sex Assigned at Not on file 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 Female 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 CHASER Gender Identity Not on file Sexual Orientation Not on file documented as of this encounter Plan of Treatment Upcoming Encounters Date Type Department Care Team (Late st Contact Info) Description 03/02/2025 11:00 AM CDT Office Visit [facility] Oncology and Hematology - Kristian [address] [facility] 200 [place] [address] Carmine Barrientos MD [address] [facility] [address] [place] [address] documented as of this encounter Visit Diagnoses Not on filedocumented in this encounter Care Teams Tool Hardener Relationship Specialty Start Date End Date Espinoza Li MD [address] [address] PCP - General Internal Medicine 08/27/18 documented as of this encounter
--- OUTSIDE RECORDS SUMMARY | 2025-02-22 14:36 | XMS_ITS | Encounter Summary ---
Author Organization [facility] Address [address] [place] [address] Care Team Providers Care Event Staff Member Name Role Phone Espinoza Li MD Primary Care Provider [phone] Encounter Details Date Type Department Care Team (Latest Contact Info) Description 04/23/2005 Outpatient Historical HIS IMG[facility] Chase John MD [address] [facility] [address] [place] [address] SCREENING MAMM-MAILG NEOPL NEC (Primary Dx) Social History Tobacco Use Types Packs/Day Years Used Date Smoking Tobacco: Never Assessed Comments Unknown Sex and Gender Information Value Date Recorded Sex Assigned at Not on file 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 Gender Identity Not on file Sexual Orientation Not on file documented as of this encounter Plan of Treatment Upcoming Encounters Date Type Department Care Team (Late st Contact Info) Description 03/02/2025 11:00 AM CDT Office Visit [facility] Oncology and Hematology - Kristian [address] [facility] [address] [place] [phone] Carmine Barrientos MD [address] [facility] [address] [place] [address] documented as of this encounter Visit Diagnoses Diagnosis Other screening mammogram- Primary documented in this encounter Care Teams Event Staff Member Relationship Specialty Start Date End Date Espinoza Li MD [address] [facility] 4 [place] [phone] (work) PCP - General Internal Medicine 08/27/18 documented as of this encounter
--- OUTSIDE RECORDS SUMMARY | 2025-02-22 14:36 | XMS_ITS | Encounter Summary ---
Author Organization [facility] Address [address] [place] [address] Care Team Providers Care Homebound Teacher Name Role Phone Espinoza Li MD Primary Care Provider [phone] Encounter Details Date Type Department Care Team (Latest Contact Info) Description 04/29/2001 Outpatient Historical HIS [facility] Chase John MD [address] [facility] [address] [place] [address] SCREENING MAMM-MAILG NEOPL-OTHER (Primary Dx) Social History Tobacco Use Types Packs/Day Years Used Date Smoking Tobacco: Never Assessed Comments Unknown Sex and Gender Information Value Date Recorded Sex Assigned at Not on file Legal Sex Female 5:17 AM MANAGED CARE PROVIDER Gender Identity Not on file Sexual Orientation Not on file documented as of this encounter Plan of Treatment Upcoming Encounters Date Type Department Care Team (Late st Contact Info) Description 03/02/2025 11:00 AM CDT Office Visit [facility] Oncology and Hematology - Kristian [address] [facility] [address] [place] [phone] Carmine Barrientos MD [address] [facility] [address] [place] [address] documented as of this encounter Visit Diagnoses Diagnosis Other screening mammogram- Primary documented in this encounter Care Teams Homebound Teacher Relationship Specialty Start Date End Date Espinoza Li MD 3[address] [facility] 4 [place] [phone] PCP - General Internal Medicine 08/27/18 documented as of this encounter
--- OUTSIDE RECORDS SUMMARY | 2025-02-22 14:36 | XMS_ITS | Encounter Summary ---
Author Organization [facility] Address [address] [place] [address] Care Team Providers Care Information Technology Professor Name Role Phone Espinoza Li MD Primary Care Provider [phone] Encounter Details Date Type Department Care Team (Latest Contact Info) Description 04/16/2008 Outpatient Historical HIS IMG-LAB [facility], History Other Screening Mammogram Social History Tobacco Use Types Packs/Day Years Used Date Smoking Tobacco: Never Assessed Comments Unknown Sex and Gender Information Value Date Recorded Sex Assigned at Not on file Legal Sex Female 5:[address]GER FIRER Gender Identity Not on file Sexual Orientation Not on file documented as of this encounter Plan of Treatment Upcoming Encounters Date Type Department Care Team (Late st Contact Info) Description 03/02/2025 11:00 AM CDT Office Visit [facility] Oncology and Hematology - Kristian [address] [facility] 200 [place] [address] Carmine Barrientos MD [address] [facility] [address] [place] [address] documented as of this encounter Procedures Procedure Name Priority Date/Time Associated Diagnosis Comments MAMMO SCREEN BILAT W OR WO CAD Routine 04/16/2008 4:[address]ASSENGER FIRER documented in this encounter Results * MAMMO DIGITAL SCREEN BILAT (04/16/2008 4:[address]ASSENGER FIRER) Anatomical Region Laterality Modality Breast Bilateral Other 04/16/2008 4:[address] PASSENGER FIRER Narrative 04/26/2008 2:[address]ENGER FIRER [place] [address] [place], [place] [address] Admit Date: 04/16/2008 ALLY HACKETT Sex: F Admit Prov: DOCTOR, NOT O Date: 1955 Primary Care Prov: CMRN: [id number] [facility] [address] [place] [address] IMAGING SERVICES Ordering Prov: DOCTOR, NOT O Accession Number: [id number] Interpretation DIGITAL SCREENING MAMMOGRAM WITH COMPUTER-ASSISTED DIAGNOSIS [...] CXZ Procedure Note Marybel Garcia - 04/26/[address] [address] Admit Date: 04/16/2008 ALLY HACKETT Sex: F Admit Prov: DOCTOR, NOT O Date: 1955 Primary Care Prov: CMRN: [id number] [facility] [address] [place] [address] IMAGING SERVICES Ordering Prov: DOCTOR, NOT O [...] mammogram documented in this encounter Care Teams Information Technology Professor Relationship Specialty Start Date End Date Espinoza Li MD [address] [address] PCP - General Internal Medicine 08/27/18 documented as of this encounter
--- OUTSIDE RECORDS SUMMARY | 2025-02-22 14:36 | XMS_ITS | Encounter Summary ---
Author Organization [facility] Address [address] [place] [address] Care Team Providers Care Support Staff Name Role Phone Espinoza Li MD Primary Care Provider [phone] Encounter Details Date Type Department Care Team (Latest Contact Info) Description 04/28/[address] 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 Gender Identity Not on file Sexual Orientation Not on file documented as of this encounter Plan of Treatment Upcoming Encounters Date Type Department Care Team (Late st Contact Info) Description 03/02/2025 11:00 AM CDT Office Visit [facility] Oncology and Hematology - Kristian [address] [facility] 200 [place] [address] Carmine Barrientos MD [address] [facility] [address] [place] [address] documented as of this encounter Visit Diagnoses Diagnosis Other screening mammogram- Primary documented in this encounter Care Teams Support Staff Relationship Specialty Start Date End Date Espinoza Li MD 3[address] [facility] 4 [place] [address] PCP - General Internal Medicine 08/27/18 documented as of this encounter
--- OUTSIDE RECORDS SUMMARY | 2025-02-22 14:36 | XMS_ITS | Encounter Summary ---
Author Organization [facility] Address [address] [place] [address] Care Team Providers Care Implementation Specialist Payroll Name Role Phone Espinoza Li MD Primary Care Provider [phone] Encounter Details Date Type Department Care Team (Latest Contact Info) Description 04/24/2004 Outpatient Historical HIS IM[facility] Chase John MD [address] [facility] [address] [place] [address] SCREENING MAMM-MAILG NEOPL-OTHER (Primary Dx) Social History Tobacco Use Types Packs/Day Years Used Date Smoking Tobacco: Never Assessed Comments Unknown Sex and Gender Information Value Date Recorded Sex Assigned at Not on file 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 Gender Identity Not on file Sexual Orientation Not on file documented as of this encounter Plan of Treatment Upcoming Encounters Date Type Department Care Team (Late st Contact Info) Description 03/02/2025 11:00 AM CDT Office Visit [facility] Oncology and Hematology - Kristian [address] [facility] [address] [place] [phone] Carmine Barrientos MD [address] [facility] [address] [place] [address] documented as of this encounter Visit Diagnoses Diagnosis Other screening mammogram- Primary documented in this encounter Care Teams Implementation Specialist Payroll Relationship Specialty Start Date End Date Espinoza Li MD [address] [facility] 4 [place] [phone] PCP - General Internal Medicine 08/27/18 documented as of this encounter
--- OUTSIDE RECORDS SUMMARY | 2025-02-22 14:36 | XMS_ITS | Encounter Summary ---
Author Organization [facility] Address [address] [place] [address] Care Team Providers Care Linen Supervisor Name Role Phone Espinoza Li MD Primary Care Provider [phone] Encounter Details Date Type Department Care Team (Latest Contact Info) Description 04/28/2003 Outpatient Historical HIS [facility] Chase John MD [address] [facility] [address] [place] [address] SCREENING MAMM-MAILG NEOPL-OTHER (Primary Dx) Social History Tobacco Use Types Packs/Day Years Used Date Smoking Tobacco: Never Assessed Comments Unknown Sex and Gender Information Value Date Recorded Sex Assigned at Not on file 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 [address] [place] [phone] Carmine Barrientos MD [address] [facility] [address] [place] [address] documented as of this encounter Visit Diagnoses Diagnosis Other screening mammogram- Primary documented in this encounter Care Teams Linen Supervisor Relationship Specialty Start Date End Date Espinoza Li MD [address] [facility] 4 [place] [phone] PCP - General Internal Medicine 08/27/18 documented as of this encounter
--- OUTSIDE RECORDS SUMMARY | 2025-02-22 14:36 | XMS_ITS | Clinical Summary ---
Author Organization [facility] Address [address] [place] [address] Care Team Providers Care Dimension Quarry Supervisor Name Role Phone Espinoza Li MD Primary Care Provider Source Comments [facility],non-owned Affiliates and Associated Physician Practices is amultiple site organization consisting of ambulatory clinics and hospital sitesin [place], [place], [place] and [place]. This disclosure is being madepursuant to the Care Everywhere program and may not contain all information available regarding this patient. 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
--- OUTSIDE RECORDS SUMMARY | 2025-02-22 14:36 | XMS_ITS | Clinical Summary ---
Author Organization [facility] Address [address] [place] [address] Care Team Providers Care Performance Improvement Analyst Name Role Phone Espinoza Li MD Primary Care Provider Allergies Active Allergy Reactions Criticality Noted Date [...] Device Data STL ABSTRACTION Provider, Abstract 01/29/2025 [facility] Oncology and Hematology - Kristian [address] [place] [address] Carmine Barrientos MD 01/12/2025 External Device Data STL ABSTRACTION Provider, Abstract 12/16/2024 External Device Data STL ABSTRACTION Provider, Abstract 12/16/2024 External Device Data STL ABSTRACTION Provider, Abstract from Last 3 Months Immunizations Immunization Administration Dates Next Due (PFIZER)(12 YR UP) COVID-19 VACCINE - EMERGENCY USE AUTHORIZATION, MRNA, [id number]) 30 MCG/0.3 ML IM SUSP 09/09/2020,08/19/2020 Family [...] on file Legal Sex Female 5:17 AM PUSHER RUNNER Gender Identity Not on file Sexual Orientation [...] Description 03/02/2025 11:00 AM CDT Office Visit [facility] Oncology and Hematology - Kristian [address] [place] [address] Carmine Barrientos MD [address] [facility] [address] [place] [address] Health Maintenance Due Date Last [...] * MAMMOGRAM REPORT (01/22/2024 4:12 PM CDT) us Carmine Barrientos MD MAMMO ORDERABLES Final Result * XR DEXA BONE DENSITY AXIAL 1 OR MORE SITES (01/21/2020) Anatomical Region Laterality Modality Other us Christine CARRERO DIAGNOSTIC IMAGING ORDERABLES Final Result from Last 3 Months or Most Recently Relevant to Health Maintenance Insurance MEDICARE PART A AND B [facility] Care Teams Performance Improvement Analyst Relationship Specialty Start Date End Date Espinoza Li MD [address] [facility] 4 [place] [address] PCP - General Internal Medicine 08/27/18
[2025-02-22 16:31] LABS: Alanine Aminotransferase 36 U/L (6-35); Albumin Level 4.1 g/dL (3.5-5.1); Alkaline Phosphatase 59 U/L (38-126); Anion Gap 7 mmol/L (4-12); Aspartate Amino Transferase 56 U/L (14-36); Bilirubin,Total 0.2 mg/dL (0.2-1.3); Blood Urea Nitrogen 17 mg/dL (7-17); Calcium 9.2 mg/dL (8.4-10.2); Carbon Dioxide 28 mmol/L (22-30); Chloride 103 mmol/L (98-107); Estimated Glomerular Filt Rate 49; Glucose 89 mg/dL (65-110); Potassium 4.2 mmol/L (3.4-5.0); Sodium 138 mmol/L (137-145); Total Protein 7.6 g/dL (6.3-8.2)
== END 2025-02-22 14:20 | disposition home or self-care (01) ==
LOC: ANHLAB 14:20
PROVIDERS: PCP Internal Medicine; Visit Provider Internal Medicine Hematology & Oncology
DX: C50.112 Malignant neoplasm of central portion of left female breast (principal); Z17.0 Estrogen receptor positive status [ER+]
CPT/HCPCS: 36415; 80053; 85025; 86300

== ENCOUNTER 2025-05-13 09:46 | Outpatient (CLI) | payer MEDICARE, OTHER, SELFPAY ==
--- NOTE | ~2025-05-13 | US_ITS ---
EXAMINATION: US renal BI, 05/13/2025 9:50 EXCELLENCE MANAGER HISTORY: Chronic kidney dz Comparison: None Technique: Orantes-scale and color Doppler images were obtained. Findings: KIDNEYS: The renal cortices are slightly thickened and echogenic, there are no solid masses, cysts or calculi, no hydronephrosis. Right Kidney: Right kidney 10.4 x 4.7 x 5.1 cm. Left Kidney: Left kidney 11.3 x 5 x 5.3 cm. Bladder: The bladder is unremarkable. . Impression: Mild medical renal disease. No obstruction Reviewed, dictated and finalized at location P. LLENCE MANAGER Impression: Mild medical renal disease. No obstruction
== END 2025-05-13 09:47 | disposition home or self-care (01) ==
LOC: MICIMG 09:48
PROVIDERS: PCP Internal Medicine; Visit Provider Internal Medicine
DX: N18.31 Chronic kidney disease, stage 3a (principal)
CPT/HCPCS: 76770